=== PATIENT | male | born 1985 | race Caucasian/White ===

== ENCOUNTER 2016-07-28 09:09 | Inpatient (IN) | payer OTHER ==
[2016-07-28 10:00] VITALS: BMI 26.4
--- NOTE | 2016-07-28 13:58 | HP ---
COWS - Scale Resting Pulse: 0= [place] 80 or Below Sweatin=Flushed/Facial Moisture Restless Observation: 1= Difficult to Sit Still Pupil Size: 0= Normal to Room Light Bone or Joint Aches: 2= Severe Diffuse Aches Runny Nose/ Eye Tearin= Runny Nose/Eyes GI Upset > 30mins: 0= None Tremor Observation: 2= Slight Tremor Visible Yawning Observation: 2= >3x During Session Anxiety or Irritability: 2=Irritable/Anxious Goose Flesh Skin: 3=Piloerection COWS Score: 16 Admission ROS S - HPI Chief Complaint: I am here to detox. Allergies/Adverse Reactions: Allergies Allergy/AdvReac Type Severity Reaction Status Date / Time No Known Allergies Allergy Verified 07/28/16 09:48 History of Present Illness: pt is a 30yr old male with a history of heroin dependence only seeking detox for treatment. Exam Limitations: No Limitations - Ebola screening Have you traveled outside of the country in the last 21 days: No Have you had contact with anyone from an Ebola affected area: No Have you been sick,other than usual withdrawal symptoms: No Do you have a fever: No - Review of Systems Constitutional: Chills, Diaphoresis, Night Sweats, Changes in sleep EENT: reports: Tearing, Nose Congestion Respiratory: reports: No Symptoms reported Cardiac: reports: No Symptoms Reported GI: reports: Poor Appetite, Poor Fluid Intake : reports: No Symptoms Reported Musculoskeletal: reports: Back Pain, Joint Pain Integumentary: reports: Flushing, Sweating Neuro: reports: Tingling, Tremors Endocrine: reports: Excessive Sweating, Flushing, Intolerance to Cold, Intolerance to Heat Hematology: reports: No Symptoms Reported Psychiatric: reports: No Sypmtoms Reported, Judgement Intact, Mood/Affect Appropiate, Orientated x3, Agitated, Anxious Other Systems: Reviewed and Negative Patient History - Patient Medical History Hx Anemia: No Hx Asthma: No Hx Chronic Obstructive Pulmonary Disease (COPD): No Hx Cancer: No Hx Cardiac Disorders: No Hx Congestive Heart Failure: No Hx Hypertension: No Hx Hypercholesterolemia: No Hx Pacemaker: No HX Cerebrovascular Accident: No Hx Seizures: No Hx Dementia: No Hx Diabetes: No Hx Gastrointestinal Disorders: No Hx Liver Disease: No Hx Genitourinary Disorders: No Hx Sexually Transmitted Disorders: No Hx Renal Disease (ESRD): No Hx Thyroid Disease: No Hx Human Immunodeficiency Virus (HIV): No (NEGATIVE HX) Hx Hepatitis C: No (negative) Hx Depression: Yes Hx Suicide Attempt: No (denies) Hx Bipolar Disorder: No Hx Schizophrenia: No Other Medical History: add - Patient Surgical History Past Surgical History: Yes Hx Neurologic Surgery: No Hx Cataract Extraction: No Hx Cardiac Surgery: No Hx Lung Surgery: No Hx Breast Surgery: No Hx Breast Biopsy: No Hx Abdominal Surgery: Yes (LT. INGUINAL HERNIA) Hx Appendectomy: No Hx Cholecystectomy: No Hx Genitourinary Surgery: No Hx Section: No Hx Orthopedic Surgery: Yes ( left elbow pinning ) Other Surgical History: vein stripping, left leg at age 23 Anesthesia Reaction: No - PPD History Previous Implant?: Yes Documented Results: Negative w/o proof Implanted On Prior [facility] Admission?: Yes Date: 02/04/15 Results: 0 mm PPD to be Administered?: Yes - Reproductive History Patient is a Female of Child Bearing Age (11 -55 yrs old): No - Smoking Cessation Smoking history: Current every day smoker Have you smoked in the past 12 months: Yes Aproximately how many cigarettes per day: 10 Cigars Per Day: 0 Hx Chewing Tobacco Use: No Initiated information on smoking cessation: Yes 'Breaking Loose' booklet given: 07/28/16 - Substance & Tx. History Hx Substance Use: Yes Substance Use Type: Heroin Hx Substance Use Treatment: Yes - Substances Abused Heroin Route: Injection Frequency: Daily Amount used: 5 bags Age of first use: 24 Date of Last Use: 07/27/16 Family Disease History - Family Disease History Family Disease History: Other: Father (ALCOHOL,COCAINE, htn ), Mother (ALCOHOL, COCAINE) Admission Physical Exam S - Vital Signs Vital Signs: Vital Signs - 24 hr 07/28/16 09:57 Temperature 98.4 F Pulse Rate 77 Respiratory 18 Rate Blood Pressure 151/92 - Physical General Appearance: Yes: Disheveled, Moderate Distress, Tremorous, Irritable, Sweating, Anxious HEENTM: Yes: Normal Voice, Nasal Congestion, Rhinorrhea Respiratory: Yes: Lungs Clear, Normal Breath Sounds, No Respiratory Distress Neck: Yes: No masses,lesions,Nodules Breast: Yes: Within Normal Limits Cardiology: Yes: Regular Rhythm, Regular Rate, S1, S2 Abdominal: Yes: Normal Bowel Sounds, Non Tender Genitourinary: Yes: Within Normal Limits Back: Yes: Normal Inspection Musculoskeletal: Yes: full range of Motion, Back pain Extremities: Yes: Normal Capillary Refill, Normal Inspection, Non-Tender, Tremors Neurological: Yes: Fully Oriented, Alert, Normal Response Integumentary: Yes: Normal Color, Diaphoresis, Track Smith Lymphatic: Yes: Within Normal Limits - Diagnostic (1) ADHD (attention deficit hyperactivity disorder) Current Visit: No Status: Acute (2) Opioid dependence with withdrawal Current Visit: Yes Status: Chronic (3) Nicotine dependence Current Visit: Yes Status: Chronic Qualifiers: Nicotine product type: cigarettes Substance use status: uncomplicated Qualified Code(s): F17.210 - Nicotine dependence, cigarettes, uncomplicated Cleared for Admission [facility] - Detox or Rehab [facility] Level of Care: Medically Managed Detox Regimen/Protocol: Methadone [facility] Breath Alcohol Content Breath Alcohol Content: 0 Urine Drug Screen - Results Drug Screen Negative: No Urine Drug Screen Results: OPI-Opiates, AMP-Amphetamines, MET-Methamphetamine
[2016-07-28] MEDS ORDERED: P-EPHED 60MG/TRIPROLIDI 2.5MG TABLET PO PRN (14:01)
[2016-07-28] MEDS ORDERED: hydrOXYzine PAMOATE 50 MG CAPSULE (FP) PO PRN (14:01)
[2016-07-28] MEDS ORDERED: MAG HYDROX/AL HYDROX/SIMETH 30 ML UNIT-DOSE CUP PO PRN (14:01)
[2016-07-28] MEDS ORDERED: guaiFENesin/D-METHORPHAN HB 10 ML UNIT-DOSE CUPS PO PRN (14:01)
[2016-07-28] MEDS ORDERED: IBUPROFEN 400 MG TABLET (FP) PO PRN (14:01)
[2016-07-28] MEDS ORDERED: LOPERAMIDE HCL 2 MG CAPSULE PO PRN (14:01)
[2016-07-28] MEDS ORDERED: MENTHOL/PHENOL 1 EACH UD MM PRN (14:01)
[2016-07-28] MEDS ORDERED: MAGNESIUM CITRATE 300 ML BOTTLE PO PRN (14:01)
[2016-07-28] MEDS ORDERED: ACETAMINOPHEN 325 MG TABLET (FP) PO PRN (14:01)
[2016-07-28] MEDS ORDERED: MAGNESIUM HYDROX 2400MG/30ML ORAL SUSPENSION 30 ML CUP PO PRN (14:01)
[2016-07-28] MEDS ORDERED: METHADONE HCL 10 MG TABLET (FOR DETOX USE ONLY) PO ONE ×2 (14:19→23:00)
[2016-07-28] MEDS ORDERED: cloNIDine HCL 0.1 MG TABLET PO ONE (14:37)
[2016-07-28] MEDS: diazePAM 5 MG TABLET PO PRN ×2 (14:48→22:23)
[2016-07-28 15:00] LABS: HIV 1 & 2 AB NEGATIVE; HIV 1 AGp24 NEGATIVE
[2016-07-28 20:51] LABS: URINE APPEARANCE CLEAR; URINE BILIRUBIN NEGATIVE (NEGATIVE); URINE BLOOD NEGATIVE (NEGATIVE); URINE COLOR YELLOW; URINE GLUCOSE (UA) NEGATIVE (NEGATIVE); URINE KETONE NEGATIVE (NEGATIVE); URINE LEUK ESTERASE NEGATIVE (NEGATIVE); URINE NITRITE NEGATIVE (NEGATIVE); URINE PROTEIN NEGATIVE (NEGATIVE); URINE UROBILINOGEN NEGATIVE E.U./dl (0.2-1.0)
[2016-07-28] MEDS: THIAMINE HCL 100 MG TABLET (FP) PO SCH (22:23)
[2016-07-29] MEDS ORDERED: METHADONE HCL 10 MG TABLET (FOR DETOX USE ONLY) PO ONE (10:00)
[2016-07-29 10:09] LABS: MCH 31.4 pg (25.7-33.7); MCHC 33.4 g/dl (32.0-35.9); MEAN CELL VOLUME 93.9 fl (80-96); MEAN PLT VOLUME 7.3 fl (7.5-11.1); PLATELET COUNT 332 K/MM3 (134-434); RDW 14.3 % (11.9-15.9); WHITE BLOOD COUNT 6.4 K/mm3 (4.0-10.0)
--- NOTE | 2016-07-29 10:13 | EKG ---
Test Reason : Blood Pressure : / mmHG Vent. Rate : 075 BPM Atrial Rate : 075 BPM P-R Int : 162 ms QRS Dur : 106 ms QT Int : 386 ms P-R-T Axes : 064 082 060 degrees QTc Int : 431 ms NORMAL SINUS RHYTHM NON-SPECIFIC INTRA-VENTRICULAR CONDUCTION DELAY NO PREVIOUS ECGS AVAILABLE Confirmed by VIVEK VALENTINE MD ([id number]) on 07/29/2016 10:12:51 AM Referred By: Itz Ramírez Confirmed By:VIVEK VALENTINE MD
[2016-07-29 10:20] LABS: ALBUMIN 3.2 g/dl (3.4-5.0); ANION GAP 11 (8-16); CALCIUM 8.3 mg/dL (8.5-10.1); CO2 25 mmol/L (21-32); CREATININE 0.8 mg/dL (0.7-1.3); GLUCOSE,RANDOM 81 mg/dL (74-106); SGOT/AST 21 U/L (15-37); SGPT/ALT 30 U/L (12-78)
[2016-07-29 10:21] LABS: ALK PHOS 80 U/L (45-117); BILIRUBIN,TOTAL 0.2 mg/dL (0.2-1.0); TOT PROT 6.2 g/dl (6.4-8.2)
--- NOTE | 2016-07-29 10:51 | PN ---
S COWS - Scale Resting Pulse: 0= [place] 80 or Below Sweatin=Flushed/Facial Moisture Restless Observation: 1= Difficult to Sit Still Pupil Size: 2= Moderately Dilated Bone or Joint Aches: 1= Mild Discomfort Runny Nose/ Eye Tearin= Runny Nose/Eyes GI Upset > 30mins: 2= Nausea/Diarrhea Tremor Observation of Outstretched Hands: 1= Tremor [place], Not Seen Yawning Observation: 0= None Anxiety or Irritability: 2=Irritable/Anxious Goose Flesh Skin: 0=Smooth Skin COWS Score: 13 S Progress Note (SOAP) Objective: 07/29/16 10:51 Vital Signs - 24 hr 07/28/16 07/28/16 07/28/16 15:04 17:55 22:20 Temperature 97.9 F 97.9 F 98.1 F Pulse Rate 110 H 86 71 Respiratory 18 18 18 Rate Blood Pressure 153/88 127/57 139/72 07/29/16 07/29/16 07/29/16 00:30 03:30 06:49 Temperature 97.9 F Pulse Rate 55 L Respiratory 18 18 16 Rate Blood Pressure 106/53 07/29/16 09:46 Temperature 97.6 F Pulse Rate 65 Respiratory 16 Rate Blood Pressure 136/74 Laboratory Tests 07/28/16 07/28/16 07/29/16 10:15 19:00 06:00 WBC 6.4 RBC 4.56 Hgb 14.3 Hct 42.8 MCV 93.9 MCHC 33.4 RDW 14.3 Plt Count 332 D MPV 7.3 L Sodium Potassium Chloride Carbon Dioxide Anion Gap BUN Creatinine Creat Clearance w eGFR Random Glucose Calcium Total Bilirubin AST ALT Alkaline Phosphatase Total Protein Albumin Urine Color Yellow Urine Appearance Clear Urine pH 6.0 Ur Specific [employer] 1.020 Urine Protein Negative Urine Glucose (UA) Negative Urine Ketones Negative Urine Blood Negative Urine Nitrite Negative Urine Bilirubin Negative Urine Urobilinogen Negative Ur Leukocyte Esterase Negative HIV 1&2 Antibody Screen Negative HIV P24 Antigen Negative 07/29/16 06:00 WBC RBC Hgb Hct MCV MCHC RDW Plt Count MPV Sodium 143 Potassium 3.9 Chloride 107 Carbon Dioxide 25 D Anion Gap 11 BUN 13 Creatinine 0.8 Creat Clearance w eGFR > 60 Random Glucose 81 Calcium 8.3 L Total Bilirubin 0.2 D AST 21 D ALT 30 D Alkaline Phosphatase 80 Total Protein 6.2 L Albumin 3.2 L Urine Color Urine Appearance Urine pH Ur Specific [employer] Urine Protein Urine Glucose (UA) Urine Ketones Urine Blood Urine Nitrite Urine Bilirubin Urine Urobilinogen Ur Leukocyte Esterase HIV 1&2 Antibody Screen HIV P24 Antigen Assessment: 07/29/16 10:51 continue detox protocol Plan: continue detox protocol
[2016-07-29] MEDS: PRENATAL VITAMINS W/ FOLIC ACID TABLET (FP) PO SCH (10:52)
[2016-07-29] MEDS: NICOTINE POLACRILEX 4 MG GUM BUC PRN (10:54)
[2016-07-29] MEDS: NICOTINE 21 MG/24 HOURS TOPICAL PATCH TD SCH (10:54)
[2016-07-29] MEDS: diazePAM 5 MG TABLET PO PRN ×2 (10:56→22:37)
--- NOTE | 2016-07-29 12:17 | CONSULT ---
[facility] Psychiatric Consult - Data Date of interview: 07/29/16 Admission source: [facility] Identifying data: Readmission to [facility] for this 30 y/o male seeking detox treatment on for heroin dependence.Patient is single without children,homeless,unemployed and reportedly deprived of any source of income. Substance Abuse History: - Smoking Cessation. Smoking history: Current every day smoker. Have you smoked in the past 12 months: Yes. Aproximately how many cigarettes per day: 10. Cigars Per Day: 0. Hx Chewing Tobacco Use: No. Initiated information on smoking cessation: Yes. 'Breaking Loose' booklet given : 07/28/16. - Substance & Tx. History. Hx Substance Use: Yes. Substance Use Type: Heroin. Hx Substance Use Treatment: Yes. - Substances Abused. Heroin. Route: Injection. Frequency: Daily. Amount used: 5 bags. Age of first use: 24. Date of Last Use: 07/27/16. Discussed wih the patient in this interview.He confirmed this reported pattern of substance abuse. Medical History: Patient reports good general health. Psychiatric History: Diagnosed with ADHD (age ).No reported history of psychiatric hospitalizations.Mr Inman indicates that he is prescribed concerta 54 mg/day.Patient denies history of suicide attempts.Last took his concerta two days ago (prior to this [facility] visit). Physical/Sexual Abuse/Trauma History: No reported history of sexual abuse.Patient reports serving in the [employer] for a period of two years.Never saw combat,as per self-report.Honorably discharged (self-report). Additional Comment: Urine Drug Screen Results: OPI-Opiates, AMP-Amphetamines, MET-Methamphetamine.Report is noted. Mental Status Exam - Mental Status Exam Alert and Oriented to: Time, Place, Person Cognitive Function: Good Patient Appearance: Unkempt, Disheveled Mood: Withdrawn, Anxious Affect: Mood Congruent Patient Behavior: Sedated, Fatigued, Talkative, Appropriate, Cooperative Speech Pattern: Clear Voice Loudness: Normal Thought Process: Goal Oriented Thought Disorder: Not Present Hallucinations: Denies Suicidal Ideation: Denies Homicidal Ideation: Denies Insight/Judgement: Poor Sleep: Fair Appetite: Good Muscle strength/Tone: Normal Gait/Station: Normal Psychiatric Findings - Problem List ([place] 1, 2,3) (1) Opioid dependence with withdrawal Current Visit: Yes Status: Acute (2) ADHD (attention deficit hyperactivity disorder) Current Visit: Yes Status: Chronic (3) Nicotine dependence Current Visit: Yes Status: Chronic Qualifiers: Nicotine product type: cigarettes Substance use status: uncomplicated Qualified Code(s): F17.210 - Nicotine dependence, cigarettes, uncomplicated - Initial Treatment Plan Initial Treatment Plan: Psychoeducation.Detoxification.Ritalin 10 mg po bid @ 8 am + 1 pm (patient agrees to take ritalin as an alternate to concerta).Side effects/benefits discussed with the patient.Observation.No scripts necessary at discharge (refill for Concerta already available as per patient).
[2016-07-29] MEDS: THIAMINE HCL 100 MG TABLET (FP) PO SCH (22:36)
[2016-07-30] MEDS ORDERED: METHYLPHENIDATE HCL 5 MG TABLET PO SCH (08:00)
[2016-07-30] MEDS ORDERED: METHADONE HCL 5 MG TABLET (FOR DETOX USE ONLY) PO ONE (10:00)
[2016-07-30] MEDS: PRENATAL VITAMINS W/ FOLIC ACID TABLET (FP) PO SCH (10:25)
[2016-07-30] MEDS: NICOTINE POLACRILEX 4 MG GUM BUC PRN (10:26)
[2016-07-30] MEDS: diazePAM 5 MG TABLET PO PRN ×3 (10:27→22:26)
--- NOTE | 2016-07-30 11:14 | PN ---
S COWS - Scale Resting Pulse: 0= [place] 80 or Below Sweatin= Chills/Flushing Restless Observation: 1= Difficult to Sit Still Pupil Size: 1= Pupils >than Normal Bone or Joint Aches: 1= Mild Discomfort Runny Nose/ Eye Tearin= Nasal Congestion GI Upset > 30mins: 2= Nausea/Diarrhea Tremor Observation of Outstretched Hands: 2= Slight Tremor Visible Yawning Observation: 1= 1-2x During Session Anxiety or Irritability: 2=Irritable/Anxious Goose Flesh Skin: 3=Piloerection COWS Score: 15 BHS Progress Note (SOAP) Subjective: nausea, sweats, interrupted sleep, anxiety, tremors Objective: 07/30/16 11:13 Laboratory Tests 07/28/16 07/28/16 07/29/16 10:15 19:00 06:00 WBC 6.4 RBC 4.56 Hgb 14.3 Hct 42.8 MCV 93.9 MCHC 33.4 RDW 14.3 Plt Count 332 D MPV 7.3 L Sodium Potassium Chloride Carbon Dioxide Anion Gap BUN Creatinine Creat Clearance w eGFR Random Glucose Calcium Total Bilirubin AST ALT Alkaline Phosphatase Total Protein Albumin Urine Color Yellow Urine Appearance Clear Urine pH 6.0 Ur Specific [place] 1.020 Urine Protein Negative Urine Glucose (UA) Negative Urine Ketones Negative Urine Blood Negative Urine Nitrite Negative Urine Bilirubin Negative Urine Urobilinogen Negative Ur Leukocyte Esterase Negative RPR Titer HIV 1&2 Antibody Screen Negative HIV P24 Antigen Negative 07/29/16 07/29/16 06:00 06:00 WBC RBC Hgb Hct MCV MCHC RDW Plt Count MPV Sodium 143 Potassium 3.9 Chloride 107 Carbon Dioxide 25 D Anion Gap 11 BUN 13 Creatinine 0.8 Creat Clearance w eGFR > 60 Random Glucose 81 Calcium 8.3 L Total Bilirubin 0.2 D AST 21 D ALT 30 D Alkaline Phosphatase 80 Total Protein 6.2 L Albumin 3.2 L Urine Color Urine Appearance Urine pH Ur Specific [place] Urine Protein Urine Glucose (UA) Urine Ketones Urine Blood Urine Nitrite Urine Bilirubin Urine Urobilinogen Ur Leukocyte Esterase RPR Titer Nonreactive HIV 1&2 Antibody Screen HIV P24 Antigen 07/30/16 11:13 Vital Signs - 24 hr 07/29/16 07/29/16 07/29/16 13:59 17:40 21:35 Temperature 97.3 F L 98.1 F 97.5 F L Pulse Rate 67 63 64 Respiratory 18 18 18 Rate Blood Pressure 134/69 108/60 134/71 07/30/16 07/30/16 07/30/16 00:30 06:00 10:19 Temperature 98.1 F 97.9 F Pulse Rate 64 77 Respiratory 18 18 16 Rate Blood Pressure 108/58 152/76 Assessment: 07/30/16 11:13 withdrawal sx Plan: cont detox
--- NOTE | 2016-07-30 12:16 | PN ---
[facility] Progress Note Note: Psychiatry Attending's note : Met with patient at his request. Issue :inadequate ritalin dosage. Mr Inman feels "no effect" on 20 mg of ritalin. Intervention : .Discontinue ritalin 10 mg po bid. .Ritalin 15 mg po bid @ 8am + 1 pm. .Patient is in agreement with this careplan. .Nurse made aware of change.
[2016-07-30] MEDS: NICOTINE 21 MG/24 HOURS TOPICAL PATCH TD SCH (12:52)
[2016-07-30] MEDS: METHYLPHENIDATE HCL 5 MG TABLET PO SCH (13:49)
[2016-07-30] MEDS: diphenhydrAMINE HCL 50 MG CAPSULE PO PRN (22:27)
[2016-07-30] MEDS: THIAMINE HCL 100 MG TABLET (FP) PO SCH (22:27)
[2016-07-31] MEDS: METHYLPHENIDATE HCL 5 MG TABLET PO SCH ×2 (07:38→13:39)
[2016-07-31] MEDS ORDERED: METHADONE HCL 5 MG TABLET (FOR DETOX USE ONLY) PO ONE (10:00)
[2016-07-31] MEDS: PRENATAL VITAMINS W/ FOLIC ACID TABLET (FP) PO SCH (10:44)
[2016-07-31] MEDS: NICOTINE 21 MG/24 HOURS TOPICAL PATCH TD SCH (10:45)
[2016-07-31] MEDS: diazePAM 5 MG TABLET PO PRN (10:48)
[2016-07-31] MEDS: NICOTINE POLACRILEX 4 MG GUM BUC PRN (10:49)
--- NOTE | 2016-07-31 12:00 | PN ---
BHS Progress Note (SOAP) Subjective: SWEATING,INTERRUPTED SLEEP,RESTLESS. Objective: 07/31/16 11:58 Vital Signs - 8 hr 07/31/16 07/31/16 06:00 10:00 Temperature 97.9 F 96.1 F L Pulse Rate 57 L 93 H Respiratory 18 18 Rate Blood Pressure 118/55 123/75 Laboratory Last Values WBC 6.4 K/mm3 (4.0-10.0) 07/29/16 06:00 RBC 4.56 M/mm3 (4.00-5.60) 07/29/16 06:00 Hgb 14.3 GM/dL (11.7-16.9) 07/29/16 06:00 Hct 42.8 % (35.4-49) 07/29/16 06:00 MCV 93.9 fl (80-96) 07/29/16 06:00 MCHC 33.4 g/dl (32.0-35.9) 07/29/16 06:00 RDW 14.3 % (11.9-15.9) 07/29/16 06:00 Plt Count 332 K/MM3 (134-434) D 07/29/16 06:00 MPV 7.3 fl (7.5-11.1) L 07/29/16 06:00 Sodium 143 mmol/L (136-145) 07/29/16 06:00 Potassium 3.9 mmol/L (3.5-5.1) 07/29/16 06:00 Chloride 107 mmol/L (98-107) 07/29/16 06:00 Carbon Dioxide 25 mmol/L (21-32) D 07/29/16 06:00 Anion Gap 11 (8-16) 07/29/16 06:00 BUN 13 mg/dL (7-18) 07/29/16 06:00 Creatinine 0.8 mg/dL (0.7-1.3) 07/29/16 06:00 Creat Clearance w eGFR > 60 (>60) 07/29/16 06:00 Random Glucose 81 mg/dL (74-106) 07/29/16 06:00 Calcium 8.3 mg/dL (8.5-10.1) L 07/29/16 06:00 Total Bilirubin 0.2 mg/dL (0.2-1.0) D 07/29/16 06:00 AST 21 U/L (15-37) D 07/29/16 06:00 ALT 30 U/L (12-78) D 07/29/16 06:00 Alkaline Phosphatase 80 U/L (45-117) 07/29/16 06:00 Total Protein 6.2 g/dl (6.4-8.2) L 07/29/16 06:00 Albumin 3.2 g/dl (3.4-5.0) L 07/29/16 06:00 Urine Color Yellow 07/28/16 19:00 Urine Appearance Clear 07/28/16 19:00 Urine pH 6.0 (5.0-8.0) 07/28/16 19:00 Ur Specific [place] 1.020 (1.001-1.035) 07/28/16 19:00 Urine Protein Negative (NEGATIVE) 07/28/16 19:00 Urine Glucose (UA) Negative (NEGATIVE) 07/28/16 19:00 Urine Ketones Negative (NEGATIVE) 07/28/16 19:00 Urine Blood Negative (NEGATIVE) 07/28/16 19:00 Urine Nitrite Negative (NEGATIVE) 07/28/16 19:00 Urine Bilirubin Negative (NEGATIVE) 07/28/16 19:00 Urine Urobilinogen Negative E.U./dl (0.2-1.0) 07/28/16 19:00 Ur Leukocyte Esterase Negative (NEGATIVE) 07/28/16 19:00 RPR Titer Nonreactive (NONREACTIVE) 07/29/16 06:00 HIV 1&2 Antibody Screen Negative 07/28/16 10:15 HIV P24 Antigen Negative 07/28/16 10:15 LABS NOTED Assessment: 07/31/16 11:59 WITHDRAWAL SX Plan: CONTINUE DETOX
[2016-07-31] MEDS: THIAMINE HCL 100 MG TABLET (FP) PO SCH (22:15)
[2016-07-31] MEDS: diphenhydrAMINE HCL 50 MG CAPSULE PO PRN (22:15)
[2016-08-01] MEDS: METHYLPHENIDATE HCL 5 MG TABLET PO SCH ×2 (08:46→13:13)
[2016-08-01] MEDS ORDERED: METHADONE HCL 10 MG TABLET (FOR DETOX USE ONLY) PO ONE (10:00)
--- NOTE | 2016-08-01 10:17 | PN ---
BHS Progress Note (SOAP) Subjective: anxious little sweats Objective: 08/01/16 10:08 Vital Signs Temperature 97.5 F L 08/01/16 05:13 Pulse Rate 67 08/01/16 05:13 Respiratory Rate 16 08/01/16 05:13 Blood Pressure 120/75 08/01/16 05:13 O2 Sat by Pulse Oximetry (%) awake/alert ambulating no acute distress Assessment: 08/01/16 10:17 withdrawal sx Plan: continue detox increase fluids d/c in am
[2016-08-01] MEDS: NICOTINE 21 MG/24 HOURS TOPICAL PATCH TD SCH (10:30)
[2016-08-01] MEDS: PRENATAL VITAMINS W/ FOLIC ACID TABLET (FP) PO SCH (10:30)
[2016-08-01] MEDS: THIAMINE HCL 100 MG TABLET (FP) PO SCH (22:30)
[2016-08-02] MEDS ORDERED: METHADONE HCL 5 MG TABLET (FOR DETOX USE ONLY) PO ONE (06:00)
[2016-08-02] MEDS: METHYLPHENIDATE HCL 5 MG TABLET PO SCH (07:17)
--- NOTE | 2016-08-02 08:38 | DS ---
[facility] Detox Discharge Summary Admission Date: 07/28/16 Discharge Date: 08/02/16 - History Present History: Cocaine Dependence, Opioid Dependence - Physical Exam Results Vital Signs: Vital Signs Temperature 97.7 F 08/02/16 06:17 Pulse Rate 66 08/02/16 06:17 Respiratory Rate 18 08/02/16 06:17 Blood Pressure 105/66 08/02/16 06:17 O2 Sat by Pulse Oximetry (%) - Treatment Hospital Course: Detox Protocol Followed, Detoxed Safely, Responded well, Discharged Condition Good, Rehab Referral Accepted - Medication Discharge Medications: Ambulatory Orders Methylphenidate HCl [Concerta] 54 mg PO DAILY 07/28/16 - Diagnosis (1) ADHD (attention deficit hyperactivity disorder) Current Visit: Yes Status: Chronic (2) Opioid dependence with withdrawal Current Visit: Yes Status: Chronic (3) Nicotine dependence Current Visit: Yes Status: Chronic Qualifiers: Nicotine product type: cigarettes Substance use status: uncomplicated Qualified Code(s): F17.210 - Nicotine dependence, cigarettes, uncomplicated - AMA Did Patient Leave Against Medical Advice: No
[2016-08-02 09:32] VITALS: BP 142/85; PULSE 107; TEMP 97
== END 2016-08-02 10:42 | disposition home or self-care (01) | DRG 773 ==
LOC: YASAS 09:09 → Y6N 10:12
PROVIDERS: ADMIT Internal Medicine Addiction Medicine; ATTEND Internal Medicine Addiction Medicine
PROC: HZ2ZZZZ Detoxification Services for Substance Abuse Treatment (ICD-10-PCS; principal; 2016-08-02)
DX: F11.23 Opioid dependence with withdrawal (principal); F17.210 Nicotine dependence, cigarettes, uncomplicated; F90.8 Attention-deficit hyperactivity disorder, other type
CPT/HCPCS: 36415; 80053; 81003; 85027; 86593; 87389; 93005; 93010

== ENCOUNTER 2016-10-12 10:24 | Inpatient (IN) | payer OTHER ==
[2016-10-12 11:10] VITALS: BMI 25.0
--- NOTE | 2016-10-12 14:08 | HP ---
COWS - Scale Resting Pulse: 1= [place] 81-100 Sweatin= Chills/Flushing Restless Observation: 3= Extraneous Movement Pupil Size: 2= Moderately Dilated Bone or Joint Aches: 4=Acute Joint/Muscle Pain Runny Nose/ Eye Tearin= Runny Nose/Eyes GI Upset > 30mins: 1= Stomach Cramp Tremor Observation: 1= Tremor [place], Not Seen Yawning Observation: 1= 1-2x During Session Anxiety or Irritability: 2=Irritable/Anxious Goose Flesh Skin: 0=Smooth Skin COWS Score: 18 Admission ROS BHS - HPI Chief Complaint: DETOX [place] FOR HEROIN DEPENDENCE Allergies/Adverse Reactions: Allergies Allergy/AdvReac Type Severity Reaction Status Date / Time No Known Allergies Allergy Verified 10/12/16 12:59 History of Present Illness: 30 Y/O MALE WITH A HX OF HEROIN,COCAINE AND METHAMPHATEMINE DEPENDENCE SEEKING DETOX [place] Exam Limitations: No Limitations - Ebola screening Have you traveled outside of the country in the last 21 days: No Have you had contact with anyone from an Ebola affected area: No Have you been sick,other than usual withdrawal symptoms: No Do you have a fever: No - Review of Systems Constitutional: Chills, Loss of Appetite, Night Sweats, Changes in sleep, Unintentional Wgt. Loss EENT: reports: Tearing, Nose Congestion, Dental Problems (CRACKED TOOTH) Respiratory: reports: No Symptoms reported Cardiac: reports: No Symptoms Reported GI: reports: Constipated, Abdominal cramping : reports: No Symptoms Reported Musculoskeletal: reports: Back Pain, Joint Pain, Muscle Pain Integumentary: reports: Bruising (IVD INJ SITES ON HANDS.) Neuro: reports: Headache Endocrine: reports: No Symptoms Reported Hematology: reports: No Symptoms Reported Psychiatric: reports: Orientated x3, Anxious, Depressed Other Systems: Reviewed and Negative Patient History - Patient Medical History Hx Anemia: No Hx Asthma: No Hx Chronic Obstructive Pulmonary Disease (COPD): No Hx Cancer: No Hx Cardiac Disorders: No Hx Congestive Heart Failure: No Hx Hypertension: No Hx Hypercholesterolemia: No Hx Pacemaker: No HX Cerebrovascular Accident: No Hx Seizures: No Hx Dementia: No Hx Diabetes: No Hx Gastrointestinal Disorders: No Hx Liver Disease: No Hx Genitourinary Disorders: No Hx Sexually Transmitted Disorders: No Hx Renal Disease (ESRD): No Hx Thyroid Disease: No Hx Human Immunodeficiency Virus (HIV): No (NEGATIVE HX) Hx Hepatitis C: No (negative) Hx Depression: Yes Hx Suicide Attempt: No Hx Bipolar Disorder: No Hx Schizophrenia: No - Patient Surgical History Past Surgical History: Yes Hx Neurologic Surgery: No Hx Cataract Extraction: No Hx Cardiac Surgery: No Hx Lung Surgery: No Hx Breast Surgery: No Hx Breast Biopsy: No Hx Abdominal Surgery: Yes (LT. INGUINAL HERNIA) Hx Appendectomy: No Hx Cholecystectomy: No Hx Genitourinary Surgery: No Hx Section: No Hx Orthopedic Surgery: Yes ( left elbow pinning ) Other Surgical History: vein stripping, left leg at age 23 Anesthesia Reaction: No - PPD History Previous Implant?: Yes Documented Results: Negative w/proof Implanted On Prior [facility] Admission?: Yes Date: 07/30/16 Results: 0 mm PPD to be Administered?: No - Reproductive History Patient is a Female of Child Bearing Age (11 -55 yrs old): No (MALE) - Smoking Cessation Smoking history: Current every day smoker Have you smoked in the past 12 months: Yes Aproximately how many cigarettes per day: 10 Cigars Per Day: 0 Hx Chewing Tobacco Use: No Initiated information on smoking cessation: Yes 'Breaking Loose' booklet given: 10/12/16 - Substance & Tx. History Hx Alcohol Use: No Hx Substance Use: Yes (HEROIN/COCAINE/MATHAMPHETAMINE) Substance Use Type: Cocaine, Heroin Hx Substance Use Treatment: Yes ([facility]) - Substances Abused Heroin Route: Injection Frequency: Daily Amount used: 10 bags Age of first use: 24 Date of Last Use: 10/11/16 Cocaine Route: Injection Frequency: Daily Amount used: $20-40 Age of first use: 19 Date of Last Use: 10/11/16 Family Disease History - Family Disease History Family Disease History: Other: Father (ALCOHOL,COCAINE, htn ), Mother (ALCOHOL, COCAINE) Admission Physical Exam S - Vital Signs Vital Signs: Vital Signs - 24 hr 10/12/16 11:08 Temperature 96.4 F L Pulse Rate 92 H Respiratory 20 Rate Blood Pressure 132/80 - Physical General Appearance: Yes: Moderate Distress, Irritable, Anxious HEENTM: Yes: EOMI, Normocephalic, KALEB, Pharynx Normal, Nasal Congestion, Rhinorrhea Respiratory: Yes: Chest Non-Tender, Lungs Clear, Normal Breath Sounds, No Respiratory Distress Neck: Yes: Supple, Trachea in good position Breast: Yes: Breast Exam Deferred Cardiology: Yes: Regular Rhythm, Regular Rate, S1, S2 Abdominal: Yes: Normal Bowel Sounds, Non Tender, Soft Genitourinary: Yes: Other (N/C) Back: Yes: Within Normal Limits Musculoskeletal: Yes: full range of Motion, Gait Steady Extremities: Yes: Normal Range of Motion, Non-Tender Neurological: Yes: efficiency clerk II-XII NML intact, Fully Oriented, Alert, Motor Strength 5/5 Integumentary: Yes: Dry, Warm, Track Smith (BOTH HANDS) Lymphatic: Yes: Within Normal Limits - Diagnostic (1) Nicotine dependence Current Visit: Yes Status: Acute Qualifiers: Nicotine product type: cigarettes Substance use status: in withdrawal Qualified Code(s): F17.213 - Nicotine dependence, cigarettes, with withdrawal (2) Opioid dependence with withdrawal Current Visit: Yes Status: Acute (3) Cocaine dependence, uncomplicated Current Visit: Yes Status: Acute Cleared for Admission [facility] - Detox or Rehab [facility] Level of Care: Medically Managed Detox Regimen/Protocol: Methadone [facility] Breath Alcohol Content Breath Alcohol Content: 0 Urine Drug Screen - Results Drug Screen Negative: No Urine Drug Screen Results: LEFTY-Cocaine, OPI-Opiates, AMP-Amphetamines, MET- Methamphetamine
[2016-10-12] MEDS ORDERED: LOPERAMIDE HCL 2 MG CAPSULE PO PRN (14:18)
[2016-10-12] MEDS ORDERED: NICOTINE POLACRILEX 2 MG GUM BC PRN (14:18)
[2016-10-12] MEDS ORDERED: IBUPROFEN 400 MG TABLET (FP) PO PRN (14:18)
[2016-10-12] MEDS ORDERED: ACETAMINOPHEN 325 MG TABLET (FP) PO PRN (14:18)
[2016-10-12] MEDS ORDERED: MAGNESIUM CITRATE 300 ML BOTTLE PO PRN (14:18)
[2016-10-12] MEDS ORDERED: MAGNESIUM HYDROX 2400MG/30ML ORAL SUSPENSION 30 ML CUP PO PRN (14:18)
[2016-10-12] MEDS ORDERED: guaiFENesin/D-METHORPHAN HB 10 ML UNIT-DOSE CUPS PO PRN (14:18)
[2016-10-12] MEDS ORDERED: MENTHOL/PHENOL 1 EACH UD MM PRN (14:18)
[2016-10-12] MEDS ORDERED: diphenhydrAMINE HCL 50 MG CAPSULE PO PRN (14:18)
[2016-10-12] MEDS ORDERED: MAG HYDROX/AL HYDROX/SIMETH 30 ML UNIT-DOSE CUP PO PRN (14:18)
[2016-10-12] MEDS ORDERED: P-EPHED 60MG/TRIPROLIDI 2.5MG TABLET PO PRN (14:18)
[2016-10-12] MEDS ORDERED: hydrOXYzine PAMOATE 25 MG CAPSULE (FP) PO PRN (14:18)
[2016-10-12] MEDS ORDERED: METHADONE HCL 10 MG TABLET (FOR DETOX USE ONLY) PO ONE ×2 (15:33→23:00)
[2016-10-12] MEDS: diazePAM 5 MG TABLET PO PRN ×2 (15:44→22:15)
[2016-10-12] MEDS: NICOTINE 14 MG/24 HOURS TOPICAL PATCH TD SCH (15:45)
[2016-10-12 18:34] LABS: URINE APPEARANCE CLEAR; URINE BILIRUBIN NEGATIVE (NEGATIVE); URINE BLOOD NEGATIVE (NEGATIVE); URINE COLOR YELLOW; URINE GLUCOSE (UA) NEGATIVE (NEGATIVE); URINE KETONE 1+ (NEGATIVE); URINE LEUK ESTERASE NEGATIVE (NEGATIVE); URINE NITRITE NEGATIVE (NEGATIVE); URINE PROTEIN NEGATIVE (NEGATIVE); URINE UROBILINOGEN 2.0 E.U/dl E.U./dl (0.2-1.0)
[2016-10-12] MEDS: THIAMINE HCL 100 MG TABLET (FP) PO SCH (22:15)
[2016-10-13] MEDS: diazePAM 5 MG TABLET PO PRN ×3 (05:56→22:13)
[2016-10-13 09:52] LABS: MCH 31.6 pg (25.7-33.7); MCHC 34.6 g/dl (32.0-35.9); MEAN CELL VOLUME 91.1 fl (80-96); MEAN PLT VOLUME 7.8 fl (7.5-11.1); PLATELET COUNT 273 K/MM3 (134-434); RDW 13.2 % (11.9-15.9); WHITE BLOOD COUNT 7.3 K/mm3 (4.0-10.0)
[2016-10-13] MEDS ORDERED: METHADONE HCL 10 MG TABLET (FOR DETOX USE ONLY) PO ONE (10:00)
--- NOTE | 2016-10-13 10:12 | PN ---
[facility] COWS - Scale Resting Pulse: 0= [place] 80 or Below Sweatin= Chills/Flushing Restless Observation: 3= Extraneous Movement Pupil Size: 2= Moderately Dilated Bone or Joint Aches: 4=Acute Joint/Muscle Pain Runny Nose/ Eye Tearin= Nasal Congestion GI Upset > 30mins: 1= Stomach Cramp Tremor Observation of Outstretched Hands: 2= Slight Tremor Visible Yawning Observation: 1= 1-2x During Session Anxiety or Irritability: 2=Irritable/Anxious Goose Flesh Skin: 0=Smooth Skin COWS Score: 17 BHS Progress Note (SOAP) Subjective: ANXIETY,SWEATS,FATIGUE. Objective: 10/13/16 10:03 Vital Signs Temperature 96.9 F L 10/13/16 09:24 Pulse Rate 70 10/13/16 09:24 Respiratory Rate 18 10/13/16 09:24 Blood Pressure 120/77 10/13/16 09:24 O2 Sat by Pulse Oximetry (%) Laboratory Last Values WBC 7.3 K/mm3 (4.0-10.0) 10/13/16 06:00 RBC 5.09 M/mm3 (4.00-5.60) 10/13/16 06:00 Hgb 16.1 GM/dL (11.7-16.9) D 10/13/16 06:00 Hct 46.4 % (35.4-49) 10/13/16 06:00 MCV 91.1 fl (80-96) 10/13/16 06:00 MCHC 34.6 g/dl (32.0-35.9) 10/13/16 06:00 RDW 13.2 % (11.9-15.9) 10/13/16 06:00 Plt Count 273 K/MM3 (134-434) 10/13/16 06:00 MPV 7.8 fl (7.5-11.1) 10/13/16 06:00 Urine Color Yellow 10/12/16 16:30 Urine Appearance Clear 10/12/16 16:30 Urine pH 5.0 (5.0-8.0) 10/12/16 16:30 Ur Specific [place] 1.026 (1.001-1.035) 10/12/16 16:30 Urine Protein Negative (NEGATIVE) 10/12/16 16:30 Urine Glucose (UA) Negative (NEGATIVE) 10/12/16 16:30 Urine Ketones 1+ (NEGATIVE) H 10/12/16 16:30 Urine Blood Negative (NEGATIVE) 10/12/16 16:30 Urine Nitrite Negative (NEGATIVE) 10/12/16 16:30 Urine Bilirubin Negative (NEGATIVE) 10/12/16 16:30 Urine Urobilinogen 2.0 e.u/dl E.U./dl (0.2-1.0) 10/12/16 16:30 Ur Leukocyte Esterase Negative (NEGATIVE) 10/12/16 16:30 Assessment: 10/13/16 10:13 WITHDRAWAL SX Plan: CONTINUE DETOX
[2016-10-13 10:17] LABS: ALBUMIN 4.1 g/dl (3.4-5.0); ALK PHOS 70 U/L (45-117); ANION GAP 12 (8-16); BILIRUBIN,TOTAL 0.7 mg/dL (0.2-1.0); CALCIUM 8.9 mg/dL (8.5-10.1); CO2 23 mmol/L (21-32); COCKROFT - GAULT 108.72; CREATININE 1.2 mg/dL (0.7-1.3); GLUCOSE,RANDOM 116 mg/dL (74-106); SGOT/AST 64 U/L (15-37); SGPT/ALT 33 U/L (12-78); TOT PROT 7.3 g/dl (6.4-8.2)
[2016-10-13] MEDS: PRENATAL VITAMINS W/ FOLIC ACID TABLET (FP) PO SCH (10:17)
[2016-10-13] MEDS: NICOTINE 14 MG/24 HOURS TOPICAL PATCH TD SCH (10:18)
--- NOTE | 2016-10-13 10:51 | CONSULT ---
[facility] Psychiatric Consult - Data Date of interview: 10/13/16 Admission source: [facility] Identifying data: This is 30 years old male with no psychiatric hospitalization history intoxicated with: Opioids, Cocaine, Nicotin and Amphethamins Substance Abuse History: - Smoking Cessation. Smoking history: Current every day smoker. Have you smoked in the past 12 months: Yes. Aproximately how many cigarettes per day: 10. Cigars Per Day: 0. Hx Chewing Tobacco Use: No. Initiated information on smoking cessation: Yes. 'Breaking Loose' booklet given : 10/12/16. - Substance & Tx. History. Hx Alcohol Use: No. Hx Substance Use: Yes (HEROIN/COCAINE/MATHAMPHETAMINE). Substance Use Type: Cocaine, Heroin. Hx Substance Use Treatment: Yes ([facility]). - Substances Abused. Heroin. Route: Injection. Frequency: Daily. Amount used: 10 bags. Age of first use: 24. Date of Last Use: 10/11/16. Cocaine. Route: Injection. Frequency: Daily. Amount used: $20-40. Age of first use: 19. Date of Last Use: 10/11/16 Medical History: Cellulitis history, Psychiatric History: Patient reprots history of ADHD, patient reports taking prior to admission Adderal, asking to continue Amphethamins during Detox protocol, refusing Strattera to replace Adderal. Patient has neen informed regardig side effects of amphethamines such as: HTN, Stroke, agressive behavior , psychosis, seozures, and informed by MD regarding of no usage Amphetamines diring Detox protocol due to dangerous side effects. Physical/Sexual Abuse/Trauma History: Denies Additional Comment: Observation. Detox Unit [facility] Protocol Mental Status Exam - Mental Status Exam Alert and Oriented to: Person Cognitive Function: Fair Patient Appearance: Unkempt Mood: Nervous, Anxious Affect: Mood Congruent Patient Behavior: Cooperative Speech Pattern: Excessive Voice Loudness: Mildly Loud Thought Process: Goal Oriented Thought Disorder: Being Controlled Hallucinations: Denies Suicidal Ideation: Denies Homicidal Ideation: Denies Insight/Judgement: Fair Sleep: Difficulty falling asleep Appetite: Weight loss Muscle strength/Tone: Normal Gait/Station: Normal Additional Comments: - Smoking Cessation. Smoking history: Current every day smoker. Have you smoked in the past 12 months: Yes. Aproximately how many cigarettes per day: 10. Cigars Per Day: 0. Hx Chewing Tobacco Use: No. Initiated information on smoking cessation: Yes. 'Breaking Loose' booklet given : 10/12/16. - Substance & Tx. History. Hx Alcohol Use: No. Hx Substance Use: Yes (HEROIN/COCAINE/MATHAMPHETAMINE). Substance Use Type: Cocaine, Heroin. Hx Substance Use Treatment: Yes ([facility]). - Substances Abused. Heroin. Route: Injection. Frequency: Daily. Amount used: 10 bags. Age of first use: 24. Date of Last Use: 10/11/16. Cocaine. Route: Injection. Frequency: Daily. Amount used: $20-40. Age of first use: 19. Date of Last Use: 10/11/16 Psychiatric Findings - Problem List ([place] 1, 2,3) (1) Cocaine dependence, uncomplicated Current Visit: Yes Status: Acute (2) Nicotine dependence Current Visit: Yes Status: Acute Qualifiers: Nicotine product type: cigarettes Substance use status: in withdrawal Qualified Code(s): F17.213 - Nicotine dependence, cigarettes, with withdrawal (3) Opioid dependence with withdrawal Current Visit: Yes Status: Acute (4) ADH disorder Current Visit: No Status: Acute (5) ADHD (attention deficit hyperactivity disorder) Current Visit: No Status: Chronic (6) Drug-induced mood disorder Current Visit: Yes Status: Acute - Initial Treatment Plan Initial Treatment Plan: Observation. Detox Unit Care Protocol
--- NOTE | 2016-10-13 10:52 | CONSULT ---
[facility] Psychiatric Consult - Data Additional Comment: Observation. Detox Unit [facility]encion Protocol
--- NOTE | 2016-10-13 11:47 | EKG ---
Test Reason : Blood Pressure : / mmHG Vent. Rate : 075 BPM Atrial Rate : 075 BPM P-R Int : 166 ms QRS Dur : 108 ms QT Int : 418 ms P-R-T Axes : 075 085 065 degrees QTc Int : 466 ms NORMAL SINUS RHYTHM POSSIBLE LEFT ATRIAL ENLARGEMENT BORDERLINE ECG WHEN COMPARED WITH ECG OF 28-JUL-2016 14:37, NO SIGNIFICANT CHANGE WAS FOUND Confirmed by FILIBERTO BOOTHE MD ([id number]) on 10/13/2016 11:47:10 AM Referred By: Confirmed By:FILIBERTO BOOTHE MD
[2016-10-13] MEDS: THIAMINE HCL 100 MG TABLET (FP) PO SCH (22:13)
[2016-10-14] MEDS: diazePAM 5 MG TABLET PO PRN ×3 (06:02→22:18)
[2016-10-14] MEDS: NICOTINE 14 MG/24 HOURS TOPICAL PATCH TD SCH (09:49)
[2016-10-14] MEDS: PRENATAL VITAMINS W/ FOLIC ACID TABLET (FP) PO SCH (09:49)
[2016-10-14] MEDS ORDERED: METHADONE HCL 5 MG TABLET (FOR DETOX USE ONLY) PO ONE (10:00)
--- NOTE | 2016-10-14 13:28 | PN ---
S COWS - Scale Resting Pulse: 0= [place] 80 or Below Sweatin=Flushed/Facial Moisture Restless Observation: 1= Difficult to Sit Still Pupil Size: 0= Normal to Room Light Bone or Joint Aches: 2= Severe Diffuse Aches Runny Nose/ Eye Tearin= Runny Nose/Eyes GI Upset > 30mins: 2= Nausea/Diarrhea Tremor Observation of Outstretched Hands: 2= Slight Tremor Visible Yawning Observation: 1= 1-2x During Session Anxiety or Irritability: 2=Irritable/Anxious Goose Flesh Skin: 0=Smooth Skin COWS Score: 14 S Progress Note (SOAP) Subjective: anxiety,sweating,interrupted sleep,restless,muscle aches/spasm Objective: 10/14/16 13:27 Vital Signs - 8 hr 10/14/16 10/14/16 06:43 10:34 Temperature 96.4 F L 95.4 F L Pulse Rate 67 63 Respiratory 18 18 Rate Blood Pressure 127/85 125/77 Laboratory Tests 10/12/16 10/13/16 10/13/16 16:30 06:00 06:00 WBC 7.3 RBC 5.09 Hgb 16.1 D Hct 46.4 MCV 91.1 MCHC 34.6 RDW 13.2 Plt Count 273 MPV 7.8 Sodium 142 Potassium 4.2 Chloride 107 Carbon Dioxide 23 Anion Gap 12 BUN 18 D Creatinine 1.2 D Creat Clearance w eGFR > 60 Random Glucose 116 H D Calcium 8.9 Total Bilirubin 0.7 D AST 64 H D ALT 33 Alkaline Phosphatase 70 Total Protein 7.3 Albumin 4.1 D Urine Color Yellow Urine Appearance Clear Urine pH 5.0 Ur Specific [place] 1.026 Urine Protein Negative Urine Glucose (UA) Negative Urine Ketones 1+ H Urine Blood Negative Urine Nitrite Negative Urine Bilirubin Negative Urine Urobilinogen 2.0 e.u/dl Ur Leukocyte Esterase Negative RPR Titer 10/13/16 06:00 WBC RBC Hgb Hct MCV MCHC RDW Plt Count MPV Sodium Potassium Chloride Carbon Dioxide Anion Gap BUN Creatinine Creat Clearance w eGFR Random Glucose Calcium Total Bilirubin AST ALT Alkaline Phosphatase Total Protein Albumin Urine Color Urine Appearance Urine pH Ur Specific [place] Urine Protein Urine Glucose (UA) Urine Ketones Urine Blood Urine Nitrite Urine Bilirubin Urine Urobilinogen Ur Leukocyte Esterase RPR Titer Nonreactive labs noted Assessment: 10/14/16 13:27 Withdrawal sx. Plan: Continue detox
--- NOTE | 2016-10-14 15:53 | PN ---
[facility] Progress Note Note: Psychiatry Attending's note : Patient seen. Issue : psychostimulants. Diagnosed with ADHD. Previously on Concerta 40 mg/day. Confirmed.Agrees with ritalin as alternate. Made aware of NO script at discharge. Mr Inman plans to contact his [employer] provider. Intervention : Ritalin 10 mg po bid (8am + 1 pm). Side effects/benefits discussed with patient. Discussed with staff.
[2016-10-14] MEDS: THIAMINE HCL 100 MG TABLET (FP) PO SCH (22:17)
[2016-10-15] MEDS: diazePAM 5 MG TABLET PO PRN ×2 (06:00→14:08)
[2016-10-15] MEDS: METHYLPHENIDATE HCL 5 MG TABLET PO SCH ×2 (08:23→13:09)
[2016-10-15] MEDS ORDERED: METHADONE HCL 5 MG TABLET (FOR DETOX USE ONLY) PO ONE (10:00)
[2016-10-15] MEDS: PRENATAL VITAMINS W/ FOLIC ACID TABLET (FP) PO SCH (10:22)
[2016-10-15] MEDS: NICOTINE 14 MG/24 HOURS TOPICAL PATCH TD SCH (10:23)
--- NOTE | 2016-10-15 16:54 | PN ---
S Progress Note (SOAP) Subjective: Fatigue, H/A, Tremors, Body Aches, Sweating. Objective: PT. A & O X 3, OBSERVED AMBULATING ON UNIT. 10/15/16 16:52 Vital Signs Temperature 97 F L 10/15/16 13:55 Pulse Rate 72 10/15/16 13:55 Respiratory Rate 20 10/15/16 13:55 Blood Pressure 133/81 10/15/16 13:55 O2 Sat by Pulse Oximetry (%) Laboratory Last Values WBC 7.3 K/mm3 (4.0-10.0) 10/13/16 06:00 RBC 5.09 M/mm3 (4.00-5.60) 10/13/16 06:00 Hgb 16.1 GM/dL (11.7-16.9) D 10/13/16 06:00 Hct 46.4 % (35.4-49) 10/13/16 06:00 MCV 91.1 fl (80-96) 10/13/16 06:00 MCHC 34.6 g/dl (32.0-35.9) 10/13/16 06:00 RDW 13.2 % (11.9-15.9) 10/13/16 06:00 Plt Count 273 K/MM3 (134-434) 10/13/16 06:00 MPV 7.8 fl (7.5-11.1) 10/13/16 06:00 Sodium 142 mmol/L (136-145) 10/13/16 06:00 Potassium 4.2 mmol/L (3.5-5.1) 10/13/16 06:00 Chloride 107 mmol/L (98-107) 10/13/16 06:00 Carbon Dioxide 23 mmol/L (21-32) 10/13/16 06:00 Anion Gap 12 (8-16) 10/13/16 06:00 BUN 18 mg/dL (7-18) D 10/13/16 06:00 Creatinine 1.2 mg/dL (0.7-1.3) D 10/13/16 06:00 Creat Clearance w eGFR > 60 (>60) 10/13/16 06:00 Random Glucose 116 mg/dL (74-106) H D 10/13/16 06:00 Calcium 8.9 mg/dL (8.5-10.1) 10/13/16 06:00 Total Bilirubin 0.7 mg/dL (0.2-1.0) D 10/13/16 06:00 AST 64 U/L (15-37) H D 10/13/16 06:00 ALT 33 U/L (12-78) 10/13/16 06:00 Alkaline Phosphatase 70 U/L (45-117) 10/13/16 06:00 Total Protein 7.3 g/dl (6.4-8.2) 10/13/16 06:00 Albumin 4.1 g/dl (3.4-5.0) D 10/13/16 06:00 Urine Color Yellow 10/12/16 16:30 Urine Appearance Clear 10/12/16 16:30 Urine pH 5.0 (5.0-8.0) 10/12/16 16:30 Ur Specific [place] 1.026 (1.001-1.035) 10/12/16 16:30 Urine Protein Negative (NEGATIVE) 10/12/16 16:30 Urine Glucose (UA) Negative (NEGATIVE) 10/12/16 16:30 Urine Ketones 1+ (NEGATIVE) H 10/12/16 16:30 Urine Blood Negative (NEGATIVE) 10/12/16 16:30 Urine Nitrite Negative (NEGATIVE) 10/12/16 16:30 Urine Bilirubin Negative (NEGATIVE) 10/12/16 16:30 Urine Urobilinogen 2.0 e.u/dl E.U./dl (0.2-1.0) 10/12/16 16:30 Ur Leukocyte Esterase Negative (NEGATIVE) 10/12/16 16:30 RPR Titer Nonreactive (NONREACTIVE) 10/13/16 06:00 LABS NOTED. Assessment: 10/15/16 16:53 WITHDRAWAL SYMPTOMS. Plan: CONTINUE DETOX. ADVISED PATIENT TO FOLLOW-UP WITH [facility] / REHAB MEDICAL PROVIDER AFTER DISCHARGE FROM DETOX FOR GENERAL MEDICAL ASSESSMENT AND FOR ABNORMAL ADMISSION LAB VALUES.
[2016-10-15 18:02] VITALS: BP 121/67; PULSE 76; TEMP 98.4
--- NOTE | 2016-10-15 18:52 | PN ---
[facility] Progress Note Note: patient did not want to complete treatment,signed release ama,advise follow up with pmd for medical problem and after care program as arrangement
--- NOTE | 2016-10-15 18:57 | DS ---
[facility] Detox Discharge Summary Admission Date: 10/12/16 Discharge Date: 10/15/16 - History Present History: Cocaine Dependence, Opioid Dependence Additional Comments: patient did not want to complete treatment,signed release ama,did not want to wait,advise to see pmd for medical problem and own psychiatrist Pertinent Past History: nicotine dependence - Physical Exam Results Vital Signs: Vital Signs Temperature 98.4 F 10/15/16 18:01 Pulse Rate 76 10/15/16 18:01 Respiratory Rate 18 10/15/16 18:01 Blood Pressure 121/67 10/15/16 18:01 O2 Sat by Pulse Oximetry (%) Pertinent Admission Physical Exam Findings: withdrawal symptom - Treatment Patient has Accepted a Rehab Referral to: declined - Medication Discharge Medications: Ambulatory Orders Methylphenidate HCl [Concerta] 54 mg PO DAILY 07/28/16 - Diagnosis (1) Cocaine dependence, uncomplicated Current Visit: Yes Status: Acute (2) Nicotine dependence Current Visit: Yes Status: Acute Qualifiers: Nicotine product type: cigarettes Substance use status: in withdrawal Qualified Code(s): F17.213 - Nicotine dependence, cigarettes, with withdrawal (3) Opioid dependence with withdrawal Current Visit: Yes Status: Acute (4) ADH disorder Current Visit: No Status: Acute (5) ADHD (attention deficit hyperactivity disorder) Current Visit: No Status: Chronic - AMA Did Patient Leave Against Medical Advice: Yes
[2016-10-16] MEDS ORDERED: METHADONE HCL 10 MG TABLET (FOR DETOX USE ONLY) PO ONE (10:00)
[2016-10-17] MEDS ORDERED: METHADONE HCL 5 MG TABLET (FOR DETOX USE ONLY) PO ONE (06:00)
== END 2016-10-15 18:25 | disposition left against medical advice (07) | DRG 770 ==
LOC: YASAS 10:24 → Y3N 15:24
PROVIDERS: ADMIT Internal Medicine; ATTEND Internal Medicine
PROC: HZ2ZZZZ Detoxification Services for Substance Abuse Treatment (ICD-10-PCS; principal; 2016-10-12)
DX: F11.23 Opioid dependence with withdrawal (principal); F14.20 Cocaine dependence, uncomplicated; F17.213 Nicotine dependence, cigarettes, with withdrawal; F90.9 Attention-deficit hyperactivity disorder, unspecified type; F19.24 Other psychoactive substance dependence with psychoactive substance-induced mood disorder
CPT/HCPCS: 36415; 80053; 81003; 85027; 86593; 93005; 93010

== ENCOUNTER 2019-03-02 17:25 | Inpatient (IN) | payer OTHER ==
[2019-03-02 17:59] VITALS: BMI 28.8
--- NOTE | 2019-03-02 18:32 | HP ---
COWS - Scale Resting Pulse: 0= [place] 80 or Below Sweatin= Chills/Flushing Restless Observation: 1= Difficult to Sit Still Pupil Size: 1= Pupils >than Normal Bone or Joint Aches: 2= Severe Diffuse Aches Runny Nose/ Eye Tearin= Runny Nose/Eyes GI Upset > 30mins: 2= Nausea/Diarrhea Tremor Observation: 2= Slight Tremor Visible Yawning Observation: 1= 1-2x During Session Anxiety or Irritability: 2=Irritable/Anxious Goose Flesh Skin: 0=Smooth Skin COWS Score: 14 CIWA Score Nausea/Vomitin Muscle Tremors: 3 Anxiety: 3 Agitation: 3 Paroxysmal Sweats: 1-Minimal Palms Moist Orientation: 0-Oriented Tacttile Disturbances: 1-Very Mild Itch/Numbness Auditory Disturbances: 0-None Visual Disturbances: 0-None Headache: 2-Mild CIWA-Ar Total Score: 15 - Admission Criteria OASAS Guidelines: Admission for Medically Managed Detox: Requires at least one of the followin. CIWA greater than 12 2. Seizures within the past 24 hours 3. Delirium tremens within the past 24 hours 4. Hallucinations within the past 24 hours 5. Acute intervention needed for co occurring medical disorder 6. Acute intervention needed for co occurring psychiatric disorder 7. Severe withdrawal that cannot be handled at a lower level of care (continued vomiting, continued diarrhea, abnormal vital signs) requiring intravenous medication and/or fluids 8. Admission ROS S - [facility] Chief Complaint: i am here need help to stop using heroin and xanax,klonopin Allergies/Adverse Reactions: Allergies Allergy/AdvReac Type Severity Reaction Status Date / Time No Known Allergies Allergy Verified 03/02/19 17:47 History of Present Illness: this 33 years old male with heroin,xanax and klonopin dependence,seeking detox, withdrawal symptom, i stop showed patient is on suboxone filled prescription on 02/18/19 8mg/2mg in the morning and 10 mg/2.5 mg in the evening, stated did not take it as prescribed but has been usiing heroin instead history of adhd last detox admission in [place] at [facility] in 10/2016 denied seizure,denied syncope did not want to continue suboxone hypertension on med nicotine dependence 10 cigarette/day,would like gum longest sobriety 14 months 01/2017 to 04/2018 [place] Exam Limitations: No Limitations - Ebola screening Have you traveled outside of the country in the last 21 days: No (N) Have you had contact with anyone from an Ebola affected area: No Do you have a fever: No - Review of Systems Constitutional: Chills, Loss of Appetite, Malaise, Night Sweats, Changes in sleep, Weakness EENT: reports: Tearing, Nose Congestion Respiratory: reports: No Symptoms reported Cardiac: reports: No Symptoms Reported GI: reports: Nausea, Poor Appetite, Abdominal cramping : reports: No Symptoms Reported Musculoskeletal: reports: Back Pain, Joint Pain, Muscle Pain Integumentary: reports: Dryness Neuro: reports: Headache, Tremors Endocrine: reports: No Symptoms Reported Hematology: reports: No Symptoms Reported Psychiatric: reports: No Sypmtoms Reported, Judgement Intact, Mood/Affect Appropiate, Orientated x3, Anxious, Depressed, other (insomnia adhd) Patient History - Patient Medical History Hx Anemia: No Hx Asthma: No Hx Chronic Obstructive Pulmonary Disease (COPD): No Hx Cancer: No Hx Cardiac Disorders: No Hx Congestive Heart Failure: No Hx Hypertension: Yes (on med) Hx Hypercholesterolemia: No Hx Pacemaker: No HX Cerebrovascular Accident: No Hx Seizures: No Hx Dementia: No Hx Diabetes: No Hx Gastrointestinal Disorders: No Hx Liver Disease: No Hx Genitourinary Disorders: No Hx Sexually Transmitted Disorders: No Hx Renal Disease (ESRD): No Hx Thyroid Disease: No Hx Human Immunodeficiency Virus (HIV): No (NEGATIVE HX last 07/21) Hx Hepatitis C: No (negative) Hx Depression: Yes (anxiety,insomnia) Hx Suicide Attempt: No Hx Bipolar Disorder: No Hx Schizophrenia: No Other Medical History: adhd,no suicidal,no homicidal - Patient Surgical History Past Surgical History: Yes Hx Neurologic Surgery: No Hx Cataract Extraction: No Hx Cardiac Surgery: No Hx Lung Surgery: No Hx Breast Surgery: No Hx Breast Biopsy: No Hx Abdominal Surgery: Yes (LT. INGUINAL HERNIA at age of 9) Hx Appendectomy: No Hx Cholecystectomy: No Hx Genitourinary Surgery: No Hx Section: No Hx Orthopedic Surgery: Yes ( left elbow pinning at age 15 years) Other Surgical History: vein stripping, left leg at age 23 Anesthesia Reaction: No - PPD History Previous Implant?: Yes Documented Results: Negative w/o proof Implanted On Prior R Admission?: Yes Date: 07/30/16 Results: 0 mm PPD to be Administered?: No - Smoking Cessation Smoking history: Current every day smoker Have you smoked in the past 12 months: Yes Aproximately how many cigarettes per day: 10 Cigars Per Day: 0 Hx Chewing Tobacco Use: No Initiated information on smoking cessation: Yes 'Breaking Loose' booklet given: 03/02/19 - Substance & Tx. History Hx Alcohol Use: No Hx Substance Use: Yes Substance Use Type: Heroin, Tranquilizers Hx Substance Use Treatment: Yes ([facility]) - Substances abused Heroin Substance route: Injection Frequency: Daily Amount used: about 15 bags Age of first use: 25 Date of last use: 03/01/19 Alprazolam (Xanax) Substance route: Oral Frequency: 3-6 times per week Amount used: 1 mg Age of first use: 32 Date of last use: 02/27/19 Benzodiazepine (Klonopin) Substance route: Oral Frequency: 3-6 times per week Amount used: 1 mg Age of first use: 30 Date of last use: 02/23/19 Family Disease History - Family Disease History Family Disease History: Other: Father (ALCOHOL,COCAINE, htn ), Mother (ALCOHOL, COCAINE) Admission Physical Exam BHS - Vital Signs Vital Signs: Vital Signs - 24 hr 03/02/19 17:47 Temperature 97.6 F Pulse Rate 57 L Respiratory 16 Rate Blood Pressure 165/87 - Physical General Appearance: Yes: Moderate Distress, Tremorous, Irritable, Sweating, Anxious HEENTM: Yes: Normal ENT Inspection, KALEB, Pharynx Normal Respiratory: Yes: Lungs Clear, Normal Breath Sounds, No Respiratory Distress Neck: Yes: Within Normal Limits, Supple, Trachea in good position Breast: Yes: Within Normal Limits Cardiology: Yes: S1, S2, Bradycardia Abdominal: Yes: Within Normal Limits, Normal Bowel Sounds, Non Tender, Soft Genitourinary: Yes: Within Normal Limits Back: Yes: Muscle Spasm Musculoskeletal: Yes: full range of Motion, Back pain, Muscle Pain Extremities: Yes: Tremors Neurological: Yes: house calls nurse practitioner II-XII NML intact, Fully Oriented, Alert, Motor Strength 5/5 Integumentary: Yes: Dry, Track [place] Lymphatic: Yes: Within Normal Limits - Diagnostic (1) Opioid dependence with withdrawal Current Visit: No Status: Acute (2) Uncomplicated sedative, hypnotic or anxiolytic withdrawal Current Visit: Yes Status: Acute (3) ADHD (attention deficit hyperactivity disorder) Current Visit: No Status: Chronic (4) IVDU (intravenous drug user) Current Visit: Yes Status: Acute (5) Nicotine dependence Current Visit: No Status: Acute Qualifiers: Nicotine product type: cigarettes Substance use status: in withdrawal Qualified Code(s): F17.213 - Nicotine dependence, cigarettes, with withdrawal (6) Essential hypertension Current Visit: Yes Status: Acute Cleared for Admission S - Detox or Rehab [facility] Level of Care: Medically Managed Detox Regimen/Protocol: Methadone/Valium Breathalyzer - Breathalyzer Breathalyzer: 0 Urine Drug Screen - Test Device Lot number: [id number] Expiration date: 11/30/20 - Control Is test valid?: Yes - Results Drug screen NEGATIVE: No Urine drug screen results: FEN-Fentanyl, MOP-Opiates, OXY-Oxycodone, BZO- Benzodiazepines Inpatient Rehab Admission - Rehab Decision to Admit Inpatient rehab admission?: No
[2019-03-02] MEDS ORDERED: MELATONIN 5 MG TABLETS PO PRN (18:42)
[2019-03-02] MEDS ORDERED: BISMUTH SUBSALICYLATE 524 MG/30 ML UD PO PRN (18:42)
[2019-03-02] MEDS ORDERED: NICOTINE POLACRILEX 2 MG GUM BUC PRN (18:42)
[2019-03-02] MEDS ORDERED: MENTHOL/PHENOL 1 EACH UD MM PRN (18:42)
[2019-03-02] MEDS ORDERED: cloNIDine HCL 0.1 MG TABLET PO PRN (18:42)
[2019-03-02] MEDS ORDERED: MAGNESIUM CITRATE 300 ML BOTTLE PO PRN (18:42)
[2019-03-02] MEDS ORDERED: METHOCARBAMOL 500 MG TABLET PO PRN (18:42)
[2019-03-02] MEDS ORDERED: MAGNESIUM HYDROX 2400MG/30ML ORAL SUSPENSION 30 ML CUP PO PRN (18:42)
[2019-03-02] MEDS ORDERED: ACETAMINOPHEN 325 MG TABLET (FP) PO PRN ×2 (18:42)
[2019-03-02] MEDS ORDERED: IBUPROFEN 400 MG TABLET (FP) PO PRN (18:42)
[2019-03-02] MEDS ORDERED: MAG HYDROX/AL HYDROX/SIMETH 30 ML UNIT-DOSE CUP PO PRN (18:42)
[2019-03-02] MEDS ORDERED: METHADONE HCL 10 MG TABLET (FOR DETOX USE ONLY) PO ONE (19:00)
[2019-03-02] MEDS: THIAMINE HCL 100 MG TABLET (FP) PO SCH (21:37)
[2019-03-02] MEDS: diazePAM 5 MG TABLET PO SCH (21:37)
[2019-03-03] MEDS: diazePAM 5 MG TABLET PO SCH ×3 (05:48→22:46)
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
[2019-03-03] MEDS ORDERED: METHADONE HCL 5 MG TABLET (FOR DETOX USE ONLY) ONE (09:38)
[2019-03-03] MEDS ORDERED: METHADONE HCL 10 MG TABLET (FOR DETOX USE ONLY) ONE (09:38)
[2019-03-03] MEDS ORDERED: METHADONE (DETOX) 20 MG, METHADONE (DETOX) 5 MG PO ONE (10:00)
[2019-03-03] MEDS: PRENATAL VITAMINS W/ FOLIC ACID TABLET (FP) PO SCH (10:06)
[2019-03-03] MEDS: amLODIPine BESYLATE 10 MG TABLET (FP) PO SCH (10:06)
[2019-03-03] MEDS: diazePAM 5 MG TABLET PO PRN ×2 (10:07→18:09)
[2019-03-03] MEDS: SERTRALINE HCL 50 MG TABLET (FP) PO SCH (10:07)
[2019-03-03 12:06] LABS: ALBUMIN 3.4 g/dl (3.4-5.0); BILIRUBIN,TOTAL 0.2 mg/dL (0.2-1); BLOOD UREA NITROGEN 17.3 mg/dL (7-18); CALCIUM 8.6 mg/dL (8.5-10.1); CREATININE 0.8 mg/dL (0.55-1.3); TOT PROT 6.2 g/dl (6.4-8.2)
[2019-03-03 12:17] LABS: HEMATOCRIT 40.5 % (35.4-49); HEMOGLOBIN 13.5 GM/dL (11.7-16.9); MCH 30.2 pg (25.7-33.7); MCHC 33.5 g/dl (32.0-35.9); MEAN CELL VOLUME 90.2 fl (80-96); MEAN PLT VOLUME 7.5 fl (7.5-11.1); PLATELET COUNT 274 K/MM3 (134-434); RBC 4.48 M/mm3 (4.00-5.60); RDW 13.3 % (11.9-15.9); WHITE BLOOD COUNT 5.8 K/mm3 (4.0-10.0)
--- NOTE | 2019-03-03 13:38 | PN ---
[facility] CIWA - CIWA Score Nausea/Vomitin-Mild Nausea/No Vomiting Muscle Tremors: 2 Anxiety: 3 Agitation: 4-Moderately Restless Paroxysmal Sweats: 2 Orientation: 0-Oriented Tacttile Disturbances: 0-None Auditory Disturbances: 0-None Visual Disturbances: 0-None Headache: 1-Very Mild CIWA-Ar Total Score: 13 BHS COWS - Scale Resting Pulse: 0= [place] 80 or Below Sweatin= Chills/Flushing Restless Observation: 0= Sits Still Pupil Size: 0= Normal to Room Light Bone or Joint Aches: 1= Mild Discomfort Runny Nose/ Eye Tearin= Nasal Congestion GI Upset > 30mins: 2= Nausea/Diarrhea (no diarrhea) Tremor Observation of Outstretched Hands: 2= Slight Tremor Visible Yawning Observation: 1= 1-2x During Session Anxiety or Irritability: 2=Irritable/Anxious Goose Flesh Skin: 3=Piloerection COWS Score: 13 S Progress Note (SOAP) Subjective: 33 years old male first patient [facility] admission since 2016 was admitted on 03/02/19 for benzo and opiate withdrawal sx management doing well with valium and methadone detox regimen anxiety with tremor mild back aches Objective: 03/03/19 13:41 Vital Signs Temperature 97.8 F 03/03/19 09:45 Pulse Rate 49 L 03/03/19 09:45 Respiratory Rate 18 03/03/19 09:45 Blood Pressure 134/88 03/03/19 09:45 O2 Sat by Pulse Oximetry (%) Laboratory Last Values WBC 5.8 K/mm3 (4.0-10.0) 03/03/19 07:30 RBC 4.48 M/mm3 (4.00-5.60) 03/03/19 07:30 Hgb 13.5 GM/dL (11.7-16.9) 03/03/19 07:30 Hct 40.5 % (35.4-49) 03/03/19 07:30 MCV 90.2 fl (80-96) 03/03/19 07:30 MCH 30.2 pg (25.7-33.7) 03/03/19 07:30 MCHC 33.5 g/dl (32.0-35.9) 03/03/19 07:30 RDW 13.3 % (11.9-15.9) 03/03/19 07:30 Plt Count 274 K/MM3 (134-434) 03/03/19 07:30 MPV 7.5 fl (7.5-11.1) 03/03/19 07:30 Sodium 142 mmol/L (136-145) 03/03/19 07:30 Potassium 4.0 mmol/L (3.5-5.1) 03/03/19 07:30 Chloride 107 mmol/L (98-107) 03/03/19 07:30 Carbon Dioxide 29 mmol/L (21-32) 03/03/19 07:30 Anion Gap 6 MMOL/L (8-16) L 03/03/19 07:30 BUN 17.3 mg/dL (7-18) 03/03/19 07:30 Creatinine 0.8 mg/dL (0.55-1.3) 03/03/19 07:30 Est GFR (CKD-EPI)AfAm 135.08 03/03/19 07:30 Est GFR (CKD-EPI)NonAf 116.55 03/03/19 07:30 Random Glucose 96 mg/dL (74-106) 03/03/19 07:30 Calcium 8.6 mg/dL (8.5-10.1) 03/03/19 07:30 Total Bilirubin 0.2 mg/dL (0.2-1) 03/03/19 07:30 AST 13 U/L (15-37) L 03/03/19 07:30 ALT 17 U/L (13-61) 03/03/19 07:30 Alkaline Phosphatase 79 U/L (45-117) 03/03/19 07:30 Total Protein 6.2 g/dl (6.4-8.2) L 03/03/19 07:30 Albumin 3.4 g/dl (3.4-5.0) 03/03/19 07:30 RPR Titer Nonreactive (NONREACTIVE) 03/03/19 07:30 HIV 1&2 Antibody Screen Cancelled 03/03/19 07:30 HIV P24 Antigen Cancelled 03/03/19 07:30 lab noted Assessment: 03/03/19 13:41 benzo and opiate withdrawal sx alert speech clearly skin warm and moist 03/03/19 13:43 patient received suboxone 6-2mg po bid on 01/22/19 patient will consider returning to suboxone program Plan: continue valium and methadone detox regimen
[2019-03-03] MEDS: THIAMINE HCL 100 MG TABLET (FP) PO SCH (22:46)
[2019-03-04] MEDS: diazePAM 5 MG TABLET PO SCH ×2 (05:49→17:12)
[2019-03-04] MEDS ORDERED: METHADONE HCL 10 MG TABLET (FOR DETOX USE ONLY) PO ONE (10:00)
[2019-03-04] MEDS: SERTRALINE HCL 50 MG TABLET (FP) PO SCH (10:19)
[2019-03-04] MEDS: diazePAM 5 MG TABLET PO PRN ×2 (10:19→22:08)
[2019-03-04] MEDS: amLODIPine BESYLATE 10 MG TABLET (FP) PO SCH (10:19)
[2019-03-04] MEDS: PRENATAL VITAMINS W/ FOLIC ACID TABLET (FP) PO SCH (10:20)
--- NOTE | 2019-03-04 12:38 | PN ---
[facility] CIWA - CIWA Score Nausea/Vomitin-Mild Nausea/No Vomiting Muscle Tremors: 3 Anxiety: 3 Agitation: 2 Paroxysmal Sweats: 1-Minimal Palms Moist Orientation: 0-Oriented Tacttile Disturbances: 0-None Auditory Disturbances: 0-None Visual Disturbances: 0-None Headache: 0-None Present CIWA-Ar Total Score: 10 BHS COWS - Scale Resting Pulse: 0= [place] 80 or Below Sweatin= Chills/Flushing Restless Observation: 0= Sits Still Pupil Size: 0= Normal to Room Light Bone or Joint Aches: 1= Mild Discomfort Runny Nose/ Eye Tearin= Nasal Congestion GI Upset > 30mins: 2= Nausea/Diarrhea Tremor Observation of Outstretched Hands: 2= Slight Tremor Visible Yawning Observation: 1= 1-2x During Session Anxiety or Irritability: 2=Irritable/Anxious Goose Flesh Skin: 0=Smooth Skin COWS Score: 10 [facility] Progress Note (SOAP) Subjective: 33 years old male admitted on 03/02/19 for benzo and opiate withdrawal sx management doing well with valium and methadone detox regimen irritable resting on bed limited conversation with staff Objective: 03/04/19 12:38 Vital Signs Temperature 97.2 F L 03/04/19 09:13 Pulse Rate 80 03/04/19 09:13 Respiratory Rate 18 03/04/19 09:13 Blood Pressure 122/78 03/04/19 09:13 O2 Sat by Pulse Oximetry (%) Laboratory Last Values WBC 5.8 K/mm3 (4.0-10.0) 03/03/19 07:30 RBC 4.48 M/mm3 (4.00-5.60) 03/03/19 07:30 Hgb 13.5 GM/dL (11.7-16.9) 03/03/19 07:30 Hct 40.5 % (35.4-49) 03/03/19 07:30 MCV 90.2 fl (80-96) 03/03/19 07:30 MCH 30.2 pg (25.7-33.7) 03/03/19 07:30 MCHC 33.5 g/dl (32.0-35.9) 03/03/19 07:30 RDW 13.3 % (11.9-15.9) 03/03/19 07:30 Plt Count 274 K/MM3 (134-434) 03/03/19 07:30 MPV 7.5 fl (7.5-11.1) 03/03/19 07:30 Sodium 142 mmol/L (136-145) 03/03/19 07:30 Potassium 4.0 mmol/L (3.5-5.1) 03/03/19 07:30 Chloride 107 mmol/L (98-107) 03/03/19 07:30 Carbon Dioxide 29 mmol/L (21-32) 03/03/19 07:30 Anion Gap 6 MMOL/L (8-16) L 03/03/19 07:30 BUN 17.3 mg/dL (7-18) 03/03/19 07:30 Creatinine 0.8 mg/dL (0.55-1.3) 03/03/19 07:30 Est GFR (CKD-EPI)AfAm 135.08 03/03/19 07:30 Est GFR (CKD-EPI)NonAf 116.55 03/03/19 07:30 Random Glucose 96 mg/dL (74-106) 03/03/19 07:30 Calcium 8.6 mg/dL (8.5-10.1) 03/03/19 07:30 Total Bilirubin 0.2 mg/dL (0.2-1) 03/03/19 07:30 AST 13 U/L (15-37) L 03/03/19 07:30 ALT 17 U/L (13-61) 03/03/19 07:30 Alkaline Phosphatase 79 U/L (45-117) 03/03/19 07:30 Total Protein 6.2 g/dl (6.4-8.2) L 03/03/19 07:30 Albumin 3.4 g/dl (3.4-5.0) 03/03/19 07:30 RPR Titer Nonreactive (NONREACTIVE) 03/03/19 07:30 HIV 1&2 Antibody Screen Cancelled 03/03/19 07:30 HIV P24 Antigen Cancelled 03/03/19 07:30 lab noted Assessment: 03/04/19 12:38 benzo and opiate withdrawal sx alert oriented x 3 speech clearly Plan: continue valium and methadone detox regimen
[2019-03-04] MEDS: THIAMINE HCL 100 MG TABLET (FP) PO SCH (22:08)
[2019-03-04 23:16] LABS: PH,URINE 6.5 (5.0-8.0); URINE APPEARANCE CLEAR; URINE BILIRUBIN NEGATIVE (NEGATIVE); URINE COLOR YELLOW; URINE GLUCOSE (UA) NEGATIVE (NEGATIVE); URINE KETONE NEGATIVE (NEGATIVE); URINE LEUK ESTERASE NEGATIVE (NEGATIVE); URINE NITRITE NEGATIVE (NEGATIVE); URINE PROTEIN NEGATIVE (NEGATIVE); URINE UROBILINOGEN 0.2 mg/dL (0.2-1.0)
[2019-03-05] MEDS ORDERED: diazePAM 5 MG TABLET PO ONE (06:00)
[2019-03-05] MEDS ORDERED: METHADONE HCL 10 MG TABLET (FOR DETOX USE ONLY) ONE (08:21)
[2019-03-05] MEDS ORDERED: METHADONE HCL 5 MG TABLET (FOR DETOX USE ONLY) ONE (08:21)
[2019-03-05] MEDS ORDERED: METHADONE (DETOX) 10 MG, METHADONE (DETOX) 5 MG PO ONE (10:00)
[2019-03-05] MEDS: amLODIPine BESYLATE 10 MG TABLET (FP) PO SCH (10:07)
[2019-03-05] MEDS: SERTRALINE HCL 50 MG TABLET (FP) PO SCH (10:07)
[2019-03-05] MEDS: PRENATAL VITAMINS W/ FOLIC ACID TABLET (FP) PO SCH (10:07)
--- NOTE | 2019-03-05 13:24 | PN ---
S CIWA - CIWA Score Nausea/Vomitin-Mild Nausea/No Vomiting Muscle Tremors: 2 Anxiety: 2 Agitation: 1-Slight > Activity Paroxysmal Sweats: 1-Minimal Palms Moist Orientation: 0-Oriented Tacttile Disturbances: 0-None Auditory Disturbances: 0-None Visual Disturbances: 0-None Headache: 0-None Present CIWA-Ar Total Score: 7 S COWS - Scale Resting Pulse: 0= [place] 80 or Below Sweatin= Chills/Flushing Restless Observation: 0= Sits Still Pupil Size: 0= Normal to Room Light Bone or Joint Aches: 1= Mild Discomfort Runny Nose/ Eye Tearin= None GI Upset > 30mins: 2= Nausea/Diarrhea Tremor Observation of Outstretched Hands: 1= Tremor [place], Not Seen Yawning Observation: 1= 1-2x During Session Anxiety or Irritability: 1=Feels Anxious/Irritable Goose Flesh Skin: 0=Smooth Skin COWS Score: 7 S Progress Note (SOAP) Subjective: 33 years old male 1st patient [facility] admission since 2017 was admitted on 03/02/19 for benzo and opiate withdrawal sx management doing well with valium and methadone detox regimen less anxious today speech clearly mild tremor Objective: 03/05/19 13:27 Vital Signs Temperature 97.3 F L 03/05/19 09:15 Pulse Rate 56 L 03/05/19 09:15 Respiratory Rate 16 03/05/19 09:15 Blood Pressure 126/57 L 03/05/19 09:15 O2 Sat by Pulse Oximetry (%) Laboratory Last Values WBC 5.8 K/mm3 (4.0-10.0) 03/03/19 07:30 RBC 4.48 M/mm3 (4.00-5.60) 03/03/19 07:30 Hgb 13.5 GM/dL (11.7-16.9) 03/03/19 07:30 Hct 40.5 % (35.4-49) 03/03/19 07:30 MCV 90.2 fl (80-96) 03/03/19 07:30 MCH 30.2 pg (25.7-33.7) 03/03/19 07:30 MCHC 33.5 g/dl (32.0-35.9) 03/03/19 07:30 RDW 13.3 % (11.9-15.9) 03/03/19 07:30 Plt Count 274 K/MM3 (134-434) 03/03/19 07:30 MPV 7.5 fl (7.5-11.1) 03/03/19 07:30 Sodium 142 mmol/L (136-145) 03/03/19 07:30 Potassium 4.0 mmol/L (3.5-5.1) 03/03/19 07:30 Chloride 107 mmol/L (98-107) 03/03/19 07:30 Carbon Dioxide 29 mmol/L (21-32) 03/03/19 07:30 Anion Gap 6 MMOL/L (8-16) L 03/03/19 07:30 BUN 17.3 mg/dL (7-18) 03/03/19 07:30 Creatinine 0.8 mg/dL (0.55-1.3) 03/03/19 07:30 Est GFR (CKD-EPI)AfAm 135.08 03/03/19 07:30 Est GFR (CKD-EPI)NonAf 116.55 03/03/19 07:30 Random Glucose 96 mg/dL (74-106) 03/03/19 07:30 Calcium 8.6 mg/dL (8.5-10.1) 03/03/19 07:30 Total Bilirubin 0.2 mg/dL (0.2-1) 03/03/19 07:30 AST 13 U/L (15-37) L 03/03/19 07:30 ALT 17 U/L (13-61) 03/03/19 07:30 Alkaline Phosphatase 79 U/L (45-117) 03/03/19 07:30 Total Protein 6.2 g/dl (6.4-8.2) L 03/03/19 07:30 Albumin 3.4 g/dl (3.4-5.0) 03/03/19 07:30 Urine Color Yellow 03/04/19 23:00 Urine Appearance Clear 03/04/19 23:00 Urine pH 6.5 (5.0-8.0) D 03/04/19 23:00 Ur Specific [place] 1.011 (1.010-1.035) 03/04/19 23:00 Urine Protein Negative (NEGATIVE) 03/04/19 23:00 Urine Glucose (UA) Negative (NEGATIVE) 03/04/19 23:00 Urine Ketones Negative (NEGATIVE) 03/04/19 23:00 Urine Blood Negative (NEGATIVE) 03/04/19 23:00 Urine Nitrite Negative (NEGATIVE) 03/04/19 23:00 Urine Bilirubin Negative (NEGATIVE) 03/04/19 23:00 Urine Urobilinogen 0.2 mg/dL (0.2-1.0) 03/04/19 23:00 Ur Leukocyte Esterase Negative (NEGATIVE) 03/04/19 23:00 RPR Titer Nonreactive (NONREACTIVE) 03/03/19 07:30 HIV 1&2 Antibody Screen Cancelled 03/03/19 07:30 HIV P24 Antigen Cancelled 03/03/19 07:30 lab noted Assessment: 03/05/19 13:27 benzo and opiate withdrawal sx alert oriented x 3 03/05/19 13:29 cardiac S1S2 regular rate rhythm respiratory no wheezing Plan: continue valium and methadone detox regimen
[2019-03-05] MEDS: hydrOXYzine PAMOATE 25 MG CAPSULE (FP) PO PRN (22:14)
[2019-03-05] MEDS: THIAMINE HCL 100 MG TABLET (FP) PO SCH (22:15)
[2019-03-06] MEDS ORDERED: METHADONE HCL 10 MG TABLET (FOR DETOX USE ONLY) PO ONE (10:00)
[2019-03-06] MEDS: amLODIPine BESYLATE 10 MG TABLET (FP) PO SCH (10:27)
[2019-03-06] MEDS: SERTRALINE HCL 50 MG TABLET (FP) PO SCH (10:27)
[2019-03-06] MEDS: PRENATAL VITAMINS W/ FOLIC ACID TABLET (FP) PO SCH (10:28)
--- NOTE | 2019-03-06 10:38 | PN ---
[facility] CIWA - CIWA Score Nausea/Vomitin-No Nausea/No Vomiting Muscle Tremors: 2 Anxiety: 2 Agitation: 1-Slight > Activity Paroxysmal Sweats: No Perspiration Orientation: 0-Oriented Tacttile Disturbances: 0-None Auditory Disturbances: 0-None Visual Disturbances: 0-None Headache: 0-None Present CIWA-Ar Total Score: 5 BHS COWS - Scale Resting Pulse: 0= [place] 80 or Below Sweatin= Chills/Flushing Restless Observation: 0= Sits Still Pupil Size: 0= Normal to Room Light Bone or Joint Aches: 1= Mild Discomfort Runny Nose/ Eye Tearin= Nasal Congestion GI Upset > 30mins: 0= None Tremor Observation of Outstretched Hands: 1= Tremor [place], Not Seen Yawning Observation: 0= None Anxiety or Irritability: 1=Feels Anxious/Irritable Goose Flesh Skin: 0=Smooth Skin COWS Score: 5 S Progress Note (SOAP) Subjective: doing well with valium and methadone detox regimen hesitate to discuss aftercare with staff resting on bed limited social activities on the unit Objective: 03/06/19 10:57 Vital Signs Temperature 97.4 F L 03/06/19 06:41 Pulse Rate 71 03/06/19 09:08 Respiratory Rate 18 03/06/19 09:08 Blood Pressure 128/74 03/06/19 09:08 O2 Sat by Pulse Oximetry (%) Laboratory Last Values WBC 5.8 K/mm3 (4.0-10.0) 03/03/19 07:30 RBC 4.48 M/mm3 (4.00-5.60) 03/03/19 07:30 Hgb 13.5 GM/dL (11.7-16.9) 03/03/19 07:30 Hct 40.5 % (35.4-49) 03/03/19 07:30 MCV 90.2 fl (80-96) 03/03/19 07:30 MCH 30.2 pg (25.7-33.7) 03/03/19 07:30 MCHC 33.5 g/dl (32.0-35.9) 03/03/19 07:30 RDW 13.3 % (11.9-15.9) 03/03/19 07:30 Plt Count 274 K/MM3 (134-434) 03/03/19 07:30 MPV 7.5 fl (7.5-11.1) 03/03/19 07:30 Sodium 142 mmol/L (136-145) 03/03/19 07:30 Potassium 4.0 mmol/L (3.5-5.1) 03/03/19 07:30 Chloride 107 mmol/L (98-107) 03/03/19 07:30 Carbon Dioxide 29 mmol/L (21-32) 03/03/19 07:30 Anion Gap 6 MMOL/L (8-16) L 03/03/19 07:30 BUN 17.3 mg/dL (7-18) 03/03/19 07:30 Creatinine 0.8 mg/dL (0.55-1.3) 03/03/19 07:30 Est GFR (CKD-EPI)AfAm 135.08 03/03/19 07:30 Est GFR (CKD-EPI)NonAf 116.55 03/03/19 07:30 Random Glucose 96 mg/dL (74-106) 03/03/19 07:30 Calcium 8.6 mg/dL (8.5-10.1) 03/03/19 07:30 Total Bilirubin 0.2 mg/dL (0.2-1) 03/03/19 07:30 AST 13 U/L (15-37) L 03/03/19 07:30 ALT 17 U/L (13-61) 03/03/19 07:30 Alkaline Phosphatase 79 U/L (45-117) 03/03/19 07:30 Total Protein 6.2 g/dl (6.4-8.2) L 03/03/19 07:30 Albumin 3.4 g/dl (3.4-5.0) 03/03/19 07:30 Urine Color Yellow 03/04/19 23:00 Urine Appearance Clear 03/04/19 23:00 Urine pH 6.5 (5.0-8.0) D 03/04/19 23:00 Ur Specific [place] 1.011 (1.010-1.035) 03/04/19 23:00 Urine Protein Negative (NEGATIVE) 03/04/19 23:00 Urine Glucose (UA) Negative (NEGATIVE) 03/04/19 23:00 Urine Ketones Negative (NEGATIVE) 03/04/19 23:00 Urine Blood Negative (NEGATIVE) 03/04/19 23:00 Urine Nitrite Negative (NEGATIVE) 03/04/19 23:00 Urine Bilirubin Negative (NEGATIVE) 03/04/19 23:00 Urine Urobilinogen 0.2 mg/dL (0.2-1.0) 03/04/19 23:00 Ur Leukocyte Esterase Negative (NEGATIVE) 03/04/19 23:00 RPR Titer Nonreactive (NONREACTIVE) 03/03/19 07:30 HIV 1&2 Ag/Ab, 4th Gen Non reactive (Non Reactive) 03/03/19 10:00 HIV 1&2 Antibody Screen Cancelled 03/03/19 07:30 HIV P24 Antigen Cancelled 03/03/19 07:30 lab noted Assessment: 03/06/19 10:57 alcohol withdrawal sx alert oriented x 3 speech clearly denies suicidal ideation Plan: continue libirum detox regimen
[2019-03-06] MEDS: hydrOXYzine PAMOATE 25 MG CAPSULE (FP) PO PRN (22:15)
[2019-03-06] MEDS: THIAMINE HCL 100 MG TABLET (FP) PO SCH (22:21)
[2019-03-07] MEDS ORDERED: METHADONE HCL 5 MG TABLET (FOR DETOX USE ONLY) PO ONE (06:00)
[2019-03-07 06:23] VITALS: BP 100/61; PULSE 53; TEMP 97
--- NOTE | 2019-03-07 18:04 | DS ---
[facility] Detox Discharge Summary Admission Date: 03/02/19 Discharge Date: 03/07/19 - History Present History: Opioid Dependence, Sedative Dependence Additional Comments: PATIENT GOING TO [facility] ([place], [place]) FOR AFTERCARE. PATIENT WAS DISCHARGED FROM DETOX UNIT IN STABLE MEDICAL CONDITION. Pertinent Past History: HTN, Depressive Disorder, Anxiety, Insomnia, History Of Attention Deficit Hyperactivity disorder, Nicotine Dependence, Intravenous Drug user. - Physical Exam Results Vital Signs: Vital Signs Temperature 97 F L 03/07/19 06:22 Pulse Rate 53 L 03/07/19 06:22 Respiratory Rate 18 03/07/19 06:30 Blood Pressure 100/61 03/07/19 06:22 O2 Sat by Pulse Oximetry (%) Pertinent Admission Physical Exam Findings: WITHDRAWAL SYMPTOMS. Laboratory Tests 03/03/19 03/03/19 03/03/19 07:30 07:30 07:30 WBC 5.8 RBC 4.48 Hgb 13.5 Hct 40.5 MCV 90.2 MCH 30.2 MCHC 33.5 RDW 13.3 Plt Count 274 MPV 7.5 Sodium 142 Potassium 4.0 Chloride 107 Carbon Dioxide 29 Anion Gap 6 L BUN 17.3 Creatinine 0.8 Est GFR (CKD-EPI)AfAm 135.08 Est GFR (CKD-EPI)NonAf 116.55 Random Glucose 96 Calcium 8.6 Total Bilirubin 0.2 AST 13 L ALT 17 Alkaline Phosphatase 79 Total Protein 6.2 L Albumin 3.4 Urine Color Urine Appearance Urine pH Ur Specific [place] Urine Protein Urine Glucose (UA) Urine Ketones Urine Blood Urine Nitrite Urine Bilirubin Urine Urobilinogen Ur Leukocyte Esterase RPR Titer Nonreactive HIV 1&2 Ag/Ab, 4th Gen HIV 1&2 Antibody Screen HIV P24 Antigen TB (QFT) Incubation TB Test (QFT) Nil TB Test (QFT) Mitogen TB Test (QFT) Antigen TB Test (QFT) TB Positive Criteria 03/03/19 03/03/19 03/03/19 07:30 07:30 10:00 WBC RBC Hgb Hct MCV MCH MCHC RDW Plt Count MPV Sodium Potassium Chloride Carbon Dioxide Anion Gap BUN Creatinine Est GFR (CKD-EPI)AfAm Est GFR (CKD-EPI)NonAf Random Glucose Calcium Total Bilirubin AST ALT Alkaline Phosphatase Total Protein Albumin Urine Color Urine Appearance Urine pH Ur Specific [place] Urine Protein Urine Glucose (UA) Urine Ketones Urine Blood Urine Nitrite Urine Bilirubin Urine Urobilinogen Ur Leukocyte Esterase RPR Titer HIV 1&2 Ag/Ab, 4th Gen Non reactive HIV 1&2 Antibody Screen Cancelled HIV P24 Antigen Cancelled TB (QFT) Incubation TB Test (QFT) Nil 0.23 TB Test (QFT) Mitogen >10.00 TB Test (QFT) Antigen 0.28 TB Test (QFT) Negative TB Positive Criteria 03/04/19 23:00 WBC RBC Hgb Hct MCV MCH MCHC RDW Plt Count MPV Sodium Potassium Chloride Carbon Dioxide Anion Gap BUN Creatinine Est GFR (CKD-EPI)AfAm Est GFR (CKD-EPI)NonAf Random Glucose Calcium Total Bilirubin AST ALT Alkaline Phosphatase Total Protein Albumin Urine Color Yellow Urine Appearance Clear Urine pH 6.5 D Ur Specific [place] 1.011 Urine Protein Negative Urine Glucose (UA) Negative Urine Ketones Negative Urine Blood Negative Urine Nitrite Negative Urine Bilirubin Negative Urine Urobilinogen 0.2 Ur Leukocyte Esterase Negative RPR Titer HIV 1&2 Ag/Ab, 4th Gen HIV 1&2 Antibody Screen HIV P24 Antigen TB (QFT) Incubation TB Test (QFT) Nil TB Test (QFT) Mitogen TB Test (QFT) Antigen TB Test (QFT) TB Positive Criteria LABS NOTED. - Treatment Hospital Course: Detox Protocol Followed, Detoxed Safely, Responded well, Discharged Condition Good Patient has Accepted a Rehab Referral to: PT. GOING TO [facility] ([place], [place]). - Medication Discharge Medications: Ambulatory Orders Sertraline HCl [Zoloft] 150 mg PO DAILY 03/02/19 Amlodipine Besylate [Norvasc -] 10 mg PO DAILY #30 tablet 03/06/19 - Diagnosis (1) Essential hypertension Status: Acute (2) IVDU (intravenous drug user) Status: Acute (3) Nicotine dependence Status: Acute Qualifiers: Nicotine product type: cigarettes Substance use status: in withdrawal Qualified Code(s): F17.213 - Nicotine dependence, cigarettes, with withdrawal (4) Opioid dependence with withdrawal Status: Acute (5) Uncomplicated sedative, hypnotic or anxiolytic withdrawal Status: Acute (6) ADHD (attention deficit hyperactivity disorder) Status: Chronic Qualifiers: Attention deficit-hyperactivity disorder type: unspecified Qualified Code(s ): F90.9 - Attention-deficit hyperactivity disorder, unspecified type (7) Substance induced mood disorder Status: Acute (8) Depressive disorder Status: Chronic - AMA Did Patient Leave Against Medical Advice: No [facility] CIWA - CIWA Score Nausea/Vomitin-No Nausea/No Vomiting Muscle Tremors: None Anxiety: 0-No Anxiety, at Ease Agitation: 1-Slight > Activity Paroxysmal Sweats: No Perspiration Orientation: 0-Oriented Tacttile Disturbances: 0-None Auditory Disturbances: 0-None Visual Disturbances: 0-None Headache: 0-None Present CIWA-Ar Total Score: 1 COWS - Scale Resting Pulse: 0= [place] 80 or Below Sweatin= No chills or Flushing Restless Observation: 1= Difficult to Sit Still Pupil Size: 0= Normal to Room Light Bone or Joint Aches: 0= None Runny Nose/ Eye Tearin= None GI Upset > 30mins: 0= None Tremor Observation: 0= None Yawning Observation: 1= 1-2x During Session Anxiety or Irritability: 0= None Goose Flesh Skin: 0=Smooth Skin COWS Score: 2
== END 2019-03-07 09:38 | disposition home or self-care (01) | DRG 773 ==
LOC: YASAS 17:25 → Y3N 18:49
PROVIDERS: ADMIT Surgery; ATTEND Surgery
PROC: HZ2ZZZZ Detoxification Services for Substance Abuse Treatment (ICD-10-PCS; principal; 2019-03-02)
DX: F11.23 Opioid dependence with withdrawal (principal); F13.230 Sedative, hypnotic or anxiolytic dependence with withdrawal, uncomplicated; F17.213 Nicotine dependence, cigarettes, with withdrawal; F90.9 Attention-deficit hyperactivity disorder, unspecified type; F19.24 Other psychoactive substance dependence with psychoactive substance-induced mood disorder; F32.9 Major depressive disorder, single episode, unspecified; I10 Essential (primary) hypertension; R00.1 Bradycardia, unspecified
CPT/HCPCS: 36415; 80053; 81003; 85027; 86480; 86593; 87389